=== PATIENT | female | born 1950 | race Caucasian/White ===

== ENCOUNTER 2018-03-10 10:49 | Emergency (ER) | payer OTHER ==
--- NOTE | 2018-03-10 12:18 | ER ---
Nurse's Notes [facility] Name: Rozina Palencia Age: 68 yrs Sex: Female : 1950 Arrival Date: 03/10/2018 Time: 10:52 Bed 26 Private MD: out of town, doctor Diagnosis: Allergic rhinitis, unspecified Presentation: 03/10 11:11 Presenting complaint: Patient states: "I've be dealing with sinus drainage for about 2 aa5 weeks now". Pt denies cough, reports sore throat, reports runny nose. Pt denies fever. Pt states "I saw the doctor on Saturday and Saturday and they gave me a steroid shot and flu pills". Pt reports flu swab was negative at the Doctor's office. Transition of care: patient was not received from another setting of care. Onset of symptoms was February 2018. Risk Assessment: Do you want to hurt yourself or someone else? Patient reports no desire to harm self or others. Initial Sepsis Screen: Does the patient meet any 2 criteria? No. Patient's initial sepsis screen is negative. Does the patient have a suspected source of infection? No. Patient's initial sepsis screen is negative. Care prior to arrival: None. 11:11 Method Of Arrival: Ambulatory aa5 11:11 Acuity: RICARDO 4 aa5 Historical: - Allergies: 11:14 PENICILLINS; aa5 11:14 Toradol; aa5 - Home Meds: 11:14 atenolol 25 mg Oral tab [Active]; aspirin 81 mg Oral chew 1 tab once daily [Active]; aa5 Prozac Oral [Active]; - PMHx: 11:14 Hypertension; Depression; aa5 - PSHx: 11:14 Kidney stones (stent placement and removal).; Hysterectomy; neck; right ankle; aa5 - Immunization history:: Flu vaccine is up to date. - Social history:: Smoking status: Patient uses tobacco products, smokes one-half pack cigarettes per day, Patient/guardian denies using alcohol, street drugs, The patient lives with family. - Ebola Screening: : No symptoms or risks identified at this time. - Family history:: not pertinent. Screenin:39 Abuse screen: Denies threats or abuse. Denies injuries from another. Nutritional aj screening: No deficits noted. Tuberculosis screening: No symptoms or risk factors identified. Fall Risk None identified. Assessment: 12:39 General: Appears in no apparent distress. comfortable, Behavior is calm, cooperative, aj appropriate for age. Pain: Denies pain. Neuro: Level of Consciousness is awake, alert, obeys commands, Oriented to person, place, time, situation, Appropriate for age. Respiratory: Airway is patent Respiratory effort is even, unlabored, Respiratory pattern is regular, symmetrical. EENT: Reports nasal congestion nasal discharge. Derm: Skin is intact, is healthy with good turgor, Skin is pink, warm \\T\\ dry. normal. Vital Signs: 11:14 BP 119 / 75; Pulse 65; Resp 18 S; Temp 97.7(TE); Pulse Ox 98% on R/A; Weight 53.52 kg aa5 (R); Height 5 ft. 0 in. (152.40 cm) (R); Pain 5/10; 11:14 Body Mass Index 23.05 (53.52 kg, 152.40 cm) aa5 11:14 Pt reports body aches aa5 ED Course: 10:52 Patient arrived in ED. sb2 10:52 out of town, doctor is Private Physician. sb2 11:12 Triage completed. aa5 11:12 Arm band placed on. aa5 11:55 Hailee Monroy RN is Primary Nurse. aj 11:55 Jessie Mccallum MD is Attending Physician. ma2 12:39 Patient has correct armband on for positive identification. aj 12:39 No provider procedures requiring assistance completed. Patient did not have IV access aj during this emergency room visit. Administered Medications: 12:21 Drug: SOLU-Medrol 125 mg Route: IM; Site: left gluteus; aj 12:42 Follow up: Response: No adverse reaction aj Outcome: 12:17 Discharge ordered by . ma2 12:39 Discharged to home ambulatory. aj 12:39 Condition: good 12:39 Discharge instructions given to patient, Instructed on discharge instructions, follow up and referral plans. medication usage, Demonstrated understanding of instructions, follow-up care, medications, Prescriptions given X 1. 12:42 Patient left the ED. aj Signatures: Hailee Monroy, RN RN Ruthy Buckner RN RN aa5 Jessie Mccallum MD MD ma2 Toña Lopes sb2 Corrections: (The following items were deleted from the chart) 11:15 11:11 Presenting complaint: Patient states: "I've be dealing with sinus drainage for aa5 about 2 weeks now". Pt denies cough, reports sore throat, reports runny nose. Pt denies fever. aa5
--- NOTE | 2018-03-10 12:19 | EDPHYS ---
Physician Documentation [facility] Name: Rozina Palencia Age: 68 yrs Sex: Female : 1950 Arrival Date: 03/10/2018 Time: 10:52 Bed 26 Private MD: out of town, doctor ED Physician Jessie Mccallum HPI: 03/10 12:15 This 68 yrs old Female presents to ER via Ambulatory with complaints of Sinus ma2 Congestion. 12:15 The patient or guardian reports. Onset: The symptoms/episode began/occurred gradually, ma2 2 day(s) ago. Severity of symptoms: At their worst the symptoms were moderate. Severity of symptoms: At their worst the symptoms were in the emergency department the symptoms are unchanged. Modifying factors: The symptoms are alleviated by nothing. Associated signs and symptoms: Pertinent negatives:. Unable to obtain HPI due to. The patient has not experienced similar symptoms in the past. Historical: - Allergies: 11:14 PENICILLINS; aa5 11:14 Toradol; aa5 - Home Meds: 11:14 atenolol 25 mg Oral tab [Active]; aspirin 81 mg Oral chew 1 tab once daily [Active]; aa5 Prozac Oral [Active]; - PMHx: 11:14 Hypertension; Depression; aa5 - PSHx: 11:14 Kidney stones (stent placement and removal).; Hysterectomy; neck; right ankle; aa5 - Immunization history:: Flu vaccine is up to date. - Social history:: Smoking status: Patient uses tobacco products, smokes one-half pack cigarettes per day, Patient/guardian denies using alcohol, street drugs, The patient lives with family. - Ebola Screening: : No symptoms or risks identified at this time. - Family history:: not pertinent. ROS: 12:15 Constitutional: Negative for fever, chills, and weight loss, Cardiovascular: Negative ma2 for chest pain, palpitations, and edema, Respiratory: Negative for shortness of breath, cough, wheezing, and pleuritic chest pain, Abdomen/GI: Negative for abdominal pain, nausea, diarrhea, and constipation, MS/Extremity: Negative for injury and deformity. 12:15 ENT: Positive for nasal discharge, Negative for Gum pain pulling at ears, Teeth pain difficulty swallowing, difficulty handling secretions, acute changes. Exam: 12:15 Constitutional: This is a well developed, well nourished patient who is awake, alert, ma2 and in no acute distress. Neck: Trachea midline, no thyromegaly or masses palpated, and no cervical lymphadenopathy. Supple, full range of motion without nuchal rigidity, or vertebral point tenderness. No Meningismus. Chest/axilla: Normal chest wall appearance and motion. Nontender with no deformity. No lesions are appreciated. Cardiovascular: Regular rate and rhythm with a normal S1 and S2. No gallops, murmurs, or rubs. Normal PMI, no JVD. No pulse deficits. Respiratory: Lungs have equal breath sounds bilaterally, clear to auscultation and percussion. No rales, rhonchi or wheezes noted. No increased work of breathing, no retractions or nasal flaring. 12:15 MS/ Extremity: Pulses equal, no cyanosis. Neurovascular intact. Full, normal range of motion. Neuro: Awake and alert, GCS 15, oriented to person, place, time, and situation. Cranial nerves II-XII grossly intact. Motor strength 5/5 in all extremities. Sensory grossly intact. Cerebellar exam normal. Normal gait. 12:15 ENT: TM's: are normal, Nose: nasal drainage, that is moderate, and is seen coming from both nares, that is clear. Vital Signs: 11:14 BP 119 / 75; Pulse 65; Resp 18 S; Temp 97.7(TE); Pulse Ox 98% on R/A; Weight 53.52 kg aa5 (R); Height 5 ft. 0 in. (152.40 cm) (R); Pain 5/10; 11:14 Body Mass Index 23.05 (53.52 kg, 152.40 cm) aa5 11:14 Pt reports body aches aa5 MDM: 11:55 Patient medically screened. ma2 12:15 Differential Diagnosis: Bronchitis Upper Respiratory Infection Sinusitis Allergic ma2 Rhinitis. Data reviewed: vital signs, nurses notes. Counseling: I had a detailed discussion with the patient and/or guardian regarding: the historical points, exam findings, and any diagnostic results supporting the discharge/admit diagnosis, the presence of at least one elevated blood pressure reading (>120/80) during this emergency department visit, the need for outpatient follow up. Response to treatment: the patient's symptoms have markedly improved after treatment. Administered Medications: 12:21 Drug: SOLU-Medrol 125 mg Route: IM; Site: left gluteus; aj 12:42 Follow up: Response: No adverse reaction aj Disposition: 03/10/18 12:17 Discharged to Home. Impression: Allergic rhinitis, unspecified. - Condition is Stable. - Discharge Instructions: Allergies, Adult, Nasal Allergies. - Prescriptions for Medrol (Justyn) 4 mg Oral Tablets, Dose Pack - take 1 tablet by ORAL route as directed - follow package instructions; 1 packet. - Medication Reconciliation Form, Thank You Letter, Antibiotic Education, Prescription Opioid Use form. - Follow up: Private Physician; When: Tomorrow; Reason: Continuance of care. Signatures: Hailee Monroy RN RN Ruthy Buckner RN RN aa5 Jessie Mccallum MD MD ma2 Corrections: (The following items were deleted from the chart) 12:42 12:17 03/10/2018 12:17 Discharged to Home. Impression: Allergic rhinitis, unspecified. aj Condition is Stable. Forms are Medication Reconciliation Form, Thank You Letter, Antibiotic Education, Prescription Opioid Use. Follow up: Private Physician; When: Tomorrow; Reason: Continuance of care. ma2
[2018-03-10] MEDS ORDERED: METHYLPREDNISOLONE 125 MG INJ ONE (12:28)
== END 2018-03-10 12:42 | disposition home or self-care (01) ==
LOC: ER 10:49
DX: J30.9 Allergic rhinitis, unspecified (principal); I10 Essential (primary) hypertension; F32.9 Major depressive disorder, single episode, unspecified; F17.210 Nicotine dependence, cigarettes, uncomplicated; Z79.82 Long term (current) use of aspirin; Z79.899 Other long term (current) drug therapy
CPT/HCPCS: 96372; 99283; J2930

== ENCOUNTER 2020-07-14 10:49 | Observation (INO) | payer OTHER ==
--- OUTSIDE RECORDS SUMMARY | 2020-07-14 12:01 | XMS REPORT | Continuity of Care Document ---
:1950 Author Organization [facility] t Address [address] [place] [address] Care Team Providers Name Role Phone Tita Barrett MD Attending Clinician [phone] Tacho Peter MD Attending Clinician TITA BARRETT Attending Clinician Unavailable KARIN LEWIS Admitting Clinician Unavailable Payers Payer Name Policy Type Policy Effective Date Expiration Date Sour ce Number CIGNA [id number] [facility] [employer] 00:00:00 - Medic [facility] [id number] 2019-Pr esentMaps Contracted Problems Condition Condition Condition Status Onset Resolution Last Treating Co mments Source Name Details Category Date Date Treatment Clinician Date Rhabdomyol Rhabdomyol Disease Active [facility] 00 Center Syncope, Syncope, Disease Active [facility] unspecifie unspecifie 12-03 Radha kes - d syncope d syncope 00:00: Medi sybil type type 00 Center Allergies, Adverse Reactions, Alerts Allergy Allergy Status Severity Reaction(s) Onset Inactive Treating Comm ents Source Name Type Date Date Clinician Penicill Propensi Active Anaphylaxis [facility] to 12[facility]02 [facility] - adverse 00:00: Medical reaction 00 Center s Sulfa Drug Active Itching [facility] (Sulfona Allergy 12-02 [facility] - mide 00:00: Medical Antibiot 00 Center ics) Ketorola Drug Active Other (See Patient [facility] Intolera Comments) 12-02 says she [facility] es - nce 00:00: passed Medical 00 out Center Family History Family Member Diagnosis Comments Start Date Stop Date Source Maternal grandmother Stroke [facility] Natural mother Kidney disease [facility] Natural father Diabetes [facility] Social History Social Habit Start Date Stop Date Quantity Comments [facility] Binge Medical [facility] Sex Assigned At [facility] Tobacco use and 2019-12-04 2019-12-04 Never used [facility] - exposure 00:00:00 00:00:[address] [facility] Alcohol intake 2019-12-04 2019-12-[address] [facility] - 00:00:00 00:00:00 non-drinker of Medical Ce nter alcohol (finding) History [facility] 2019-12-03 2019-12-03 1 [facility] Alcohol Frequency 00:00:00 00:00:[address] [facility] Smoking Status Start Date Stop Date Source Current every day smoker 2019-12-04 00:00:00 [facility] Medications Ordered Filled Start Stop Current Ordering Indication Dosage Frequency Signature Comments Components Source Medication Medication Date Date Medication? Clinician (SIG) Name Name atenoloL Yes hypertensio 12.5mg QD Take 12.[address] (TENORMIN) 9-20 n mg by [facility] - 25 MG 18:04: mouth Medical tablet 51 daily. [place] aspirin 81 Yes 81mg QD Take [address] MG EC 9-20 by mouth [facility] - tablet 18:04: daily. Medical 51 Center busPIRone Yes 7.5mg [id number] Take 7.[address] (BUSPAR) 9-20 [id number] mg by Luke s - 7.5 MG 18:04: 3D mouth 3 Medical tablet 51 (three) Center times daily. fluticasone Yes 2{spray QD [address] (VERAMYST) 9-20 } by Nasal [facility] - 27.5 18:04: route Medical mcg/actuati 51 daily. Center on nasal spray valbenazine Yes tardive 80mg QD Take [address] (INGREZZA) 9-20 dyskinesia by mouth [facility] - 80 mg Cap 18:04: daily. Medica l Center gabapentin Yes 600mg QD Take [address] (NEURONTIN) 9-20 mg by [facility] - 600 MG 18:04: mouth Medical tablet 51 daily. [place] lamoTRIgine Yes 100mg QD Take [address] (LAMICTAL) 9-20 mg by [facility] - 100 MG 18:04: mouth Medical tablet 51 nightly. [place] ziprasidone Yes 60mg QD Take [address] (GEODON) 60 9-20 by mouth Luke s - MG capsule 18:04: nightly. Med ical 51 [place] ALPRAZolam 2020- No 1mg Take [address] (XANAX) 1 -05 12-20 by mouth [facility] - MG tablet 11:01: 00:00 every 12 Med ical 00 :00 (twelve) Center hours. ALPRAZolam Yes .5mg Take 0.[address] (XANAX) 1 9-20 tablets [facility] - MG tablet 00:00: (0.5 mg Medic al 00 total) by Center mouth every 12 (twelve) hours. Max Daily Amount: 1 mg Vital Signs Vital Name Observation Time Observation Value Comments Source Systolic blood 2019-12-06 15:30:00 135 mm[Hg] [facility] Diastolic blood 2019-12-06 15:30:00 96 mm[Hg] [facility] Heart rate 2019-12-06 15:30:00 72 /min [facility] Body temperature 2019-12-06 15:30:00 36.06 Mikayla [facility] Respiratory rate 2019-12-06 15:30:00 18 /min [facility] Oxygen saturation in 2019-12-06 15:30:00 96 /min [facility] Arterial blood by Medical Ce nter Pulse oximetry Body height 2019-12-03 23:43:00 152.4 cm [facility] Body weight 2019-12-03 23:43:00 57.924 kg [facility] BMI 2019-12-03 23:43:00 24.94 kg/m2 [facility] Procedures Procedure Date / Time Performed Performing Clinician [facility] e REPORT OF PROCEDURE - 2019-12-09 08:00:37 Provider, Default [facility] - ENDOSCOPY SCAN [facility] RHYTHM STRIP - SCAN 2019-12-09 08:00:25 Provider, Default [facility] CBC W/PLT COUNT & AUTO 2019-12-06 05:41:[address] [facility] - DIFFERENTIAL [facility] BASIC METABOLIC PANEL 2019-12-06 05:40:[address] [facility] - (7) [facility] CBC W/PLT COUNT & AUTO 2019-12-05 05:31:[address] [facility] - DIFFERENTIAL [facility] BASIC METABOLIC PANEL 2019-12-05 05:31:[address] [facility] - (7) [facility] CREATINE KINASE (CK) 2019-12-05 05:31:00 Norman Peter [facility] 2D ECHO W/ DOPPLER 2019-12-04 09:48:13 Alphonso Ricci [facility] (CW/PW/COLOR) [facility] CREATINE KINASE (CK) 2019-12-04 04:30:00 Alphonso Ricci [facility] URINALYSIS W/ 2019-12-04 04:29:[address] [facility] - MICROSCOPIC [facility] SARS-COV2/RT-PCR ([facility] & 2019-12-04 02:33:[address] [facility] - REF LABS) [facility] ECG 12-LEAD 2019-12-04 01:47:[address] [facility] CBC W/PLT COUNT & AUTO 2019-12-04 01:39:[address] [facility] - DIFFERENTIAL [facility] BASIC METABOLIC PANEL 2019-12-04 01:39:[address] [facility] - (7) [facility] HEPATIC FUNCTION PANEL 2019-12-04 01:39:[address] [facility] MAGNESIUM 2019-12-04 01:39:[address] [facility] PHOSPHORUS 2019-12-04 01:39:[address] [facility] [facility] Plan of Care Planned Activity Planned Date Details Comments Source Future Scheduled 2019-11-17 INFLUENZA VACCINE (#1) [facility] - Test 00:00:00 [code = INFLUENZA Medical Ce nter VACCINE (#1)] Future Scheduled 2019-03-18 Medicare IPPE (WELCOME [facility] - Test 00:00:00 TO MEDICARE) [code = [facility] Center Medicare IPPE (WELCOME TO MEDICARE)] Future Scheduled 2015 PNEUMOCOCCAL 65+ [facility] - Test 00:00:00 (1 of 1 - [facility] Center [id number] PCV13) [code = PNEUMOCOCCAL 65+ YRS (1 of 1 - [id number] PCV13)] Future Scheduled [address] [facility] St [facility] es - Test 00:00:00 malignant neoplasm of [facility] breast (procedure) [code = 969179984] Future Scheduled [address] [facility] - Test 00:00:00 malignant neoplasm of [facility] colon (procedure) [code = 642575369] Results Test Description Test Time Test Comments Results Result Comments Source Basic Metabolic Panel 2019-12-06 06:50:00 Test Item Value Reference Range Interpretation Comme nts Sodium (test code = 141 meq/L 002-304 8672-2) Potassium (test code = 3.7 meq/L 3.5-5.1 2823-3) Chloride (test code = 105 meq/L 98-107 2075-0) CO2 (test code = 8-9) 27 meq/L 22-29 BUN (test code = 3094-0) 4 mg/dL 7-21 L Creatinine (test code = 0.65 mg/dL 0.57-1.25 2160-0) Glucose (test code = 97 mg/dL 70-105 2345-7) Calcium (test code = 8.5 mg/dL 8.4-10.2 02814-3) EGFR (test code = 94859-4) 90 mL/min/1.73 sq m ESTIMATED GFR IS NOT ACCURATE CREATININE CINTHYA PIETRO IN PREDICTING GLOMERULAR FILT RATION RATE. ESTIMATED GFR IS NOT APPLICAB LE FOR DIALYSIS MARY TS. CEE (test code = CEE) Acid Tender ID - EDASI Lab Interpretation (test Abnormal code = 55347-6) [facility] [id number] 06:50:00 Test Item Value Reference Range Interpretation Comments SODIUM (BEAKER) 141 meq/L 136-145 (test code = 381) POTASSIUM (BEAKER) 3.7 meq/L 3.5-5.1 (test code = 379) CHLORIDE (BEAKER) 105 meq/L 98-107 (test code = 382) CO2 (BEAKER) (test 27 meq/L 22-29 code = 355) BLOOD UREA NITROGEN 4 mg/dL 7-21 L (BEAKER) (test code = 354) CREATININE (BEAKER) 0.65 mg/dL 0.57-1.25 (test code = 358) GLUCOSE RANDOM 97 mg/dL 70-105 (BEAKER) (test code = 652) CALCIUM (BEAKER) 8.5 mg/dL 8.4-10.2 (test code = 697) EGFR (BEAKER) (test 90 mL/min/1.73 ESTIMA RENAE GFR IS code = 1092) sq m NOT ACCURATE CREATININE CLEARANCE IN PREDICTING GLOMERULAR FILTRATION RATE . ESTIMATED GFR I S NOT APPLICABLE FOR DIALYSIS PATIEN TS. Acid Tender ID - EDASICBC with platelet count + automated [id number] 06:21:00 Test Item Value Reference Range Interpretation Comments WBC (test code = 6690-2) 7.5 See_Comment [A utomated message] The system [employer] generated this result transmitted ref erence range: 3.5 - 10 .5 K/L. The refe rence range was not u sed to interpret this result as normal/abnor mal. RBC (test code = 789-8) 4.12 See_Comment [Au tomated message] The system [employer] generated this result transmitted ref erence range: 3.93 - 5 .22 M/L. The refe rence range was not u sed to interpret this result as normal/abnor mal. MCHC (test code = 786-4) 31.1 See_Comment L [A utomated message] The system [employer] generated this result transmitted ref erence range: 32.2 - 3 5.5 GM/DL. The refe rence range was not u sed to interpret this result as normal/abnor mal. Hematocrit (test code = 36.7 % 34.1-44.9 4544-3) MCV (test code = 787-2) 89.1 fL 79.4-94.8 MCH (test code = 785-6) 27.7 pg 25.6-32.2 RDW (test code = 788-0) 15.9 % 11.7-14.4 H Platelets (test code = 263 See_Comment [Aut omated message] 777-3) The system [employer] generated this result transmitted ref erence range: 150 - 45 0 K/CU MM. The referen ce range was not u sed to interpret this result as normal/abnor mal. MPV (test code = 9.5 fL 9.4-12.3 31649-2) nRBC (test code = 413) 0 See_Comment [Aut omated message] The system [employer] generated this result transmitted ref erence range: 0 - 0 /1 00 WBC. The refere nce range was not u sed to interpret this result as normal/abnor mal. % Neutros (test code = 65 % 429) % Lymphs (test code = 22 % 430) % Monos (test code = 10 % 431) % Eos (test code = 432) 3 % % Baso (test code = 437) 0 % # Neutros (test code = 4.86 See_Comment [Aut omated message] 670) The system [employer] generated this result transmitted ref erence range: 1.56 - 6 .13 K/L. The refe rence range was not u sed to interpret this result as normal/abnor mal. # Lymphs (test code = 1.62 See_Comment [Auto mated message] 414) The system [employer] generated this result transmitted ref erence range: 1.18 - 3 .74 K/L. The refe rence range was not u sed to interpret this result as normal/abnor mal. # Monos (test code = 0.76 See_Comment H [Autom ated message] 415) The system [employer] generated this result transmitted ref erence range: 0.24 - 0 .36 K/L. The refe rence range was not u sed to interpret this result as normal/abnor mal. # Eos (test code = 416) 0.21 See_Comment [Au tomated message] The system [employer] generated this result transmitted ref erence range: 0.04 - 0 .36 K/L. The refe rence range was not u sed to interpret this result as normal/abnor mal. # Baso (test code = 417) 0.03 See_Comment [A utomated message] The system [employer] generated this result transmitted ref erence range: 0.01 - 0 .08 K/L. The refe rence range was not u sed to interpret this result as normal/abnor mal. Immature 0 % 0-1 Granulocytes-Relative (test code = 2801) Lab Interpretation (test Abnormal code = 87489-9) [facility] W/PLT COUNT & AUTO [id number] 06:21:00 Test Item Value Reference Range Interpretation Comments WHITE BLOOD CELL COUNT (BEAKER) 7.5 K/ L 3.5-10.5 (test code = 775) RED BLOOD CELL COUNT (BEAKER) 4.12 M/ L 3.93-5.22 (test code = 761) HEMOGLOBIN (BEAKER) (test code = 11.4 GM/DL 11.2-15.7 410) HEMATOCRIT (BEAKER) (test code = 36.7 % 34.1-44.9 411) MEAN CORPUSCULAR VOLUME (BEAKER) 89.1 fL 79.4-94.8 (test code = 753) MEAN CORPUSCULAR HEMOGLOBIN 27.7 pg 25.6-32.2 (BEAKER) (test code = 751) MEAN CORPUSCULAR HEMOGLOBIN CONC 31.1 GM/DL 32.2-35.5 L (BEAKER) (test code = 752) RED CELL DISTRIBUTION WIDTH 15.9 % 11.7-14.4 H (BEAKER) (test code = 412) PLATELET COUNT (BEAKER) (test 263 K/CU MM 150-450 code = 756) MEAN PLATELET VOLUME (BEAKER) 9.5 fL 9.4-12.3 (test code = 754) NUCLEATED RED BLOOD CELLS 0 /100 WBC 0-0 (BEAKER) (test code = 413) NEUTROPHILS RELATIVE PERCENT 65 % (BEAKER) (test code = 429) LYMPHOCYTES RELATIVE PERCENT 22 % (BEAKER) (test code = 430) MONOCYTES RELATIVE PERCENT 10 % (BEAKER) (test code = 431) EOSINOPHILS RELATIVE PERCENT 3 % (BEAKER) (test code = 432) BASOPHILS RELATIVE PERCENT 0 % (BEAKER) (test code = 437) NEUTROPHILS ABSOLUTE COUNT 4.86 K/ L 1.56-6.13 (BEAKER) (test code = 670) LYMPHOCYTES ABSOLUTE COUNT 1.62 K/ L 1.18-3.74 (BEAKER) (test code = 414) MONOCYTES ABSOLUTE COUNT (BEAKER) 0.76 K/ L 0.24-0.36 H (test code = 415) EOSINOPHILS ABSOLUTE COUNT 0.21 K/ L 0.04-0.36 (BEAKER) (test code = 416) BASOPHILS ABSOLUTE COUNT (BEAKER) 0.03 K/ L 0.01-0.08 (test code = 417) IMMATURE GRANULOCYTES-RELATIVE 0 % 0-1 PERCENT (BEAKER) (test code = 2801) Creatine Kinase (CK)2019-12-05 13:49:00 Test Item Value Reference Range Interpretation Comments Total CK (test code = 1165 U/L 29-200 H 2157-6) CEE (test code = CEE) Acid Tender ID Heather GUPTA L Lab Interpretation (test Abnormal code = 05813-4) [facility]2019-12-05 13:49:00 Test Item Value Reference Range Interpretation Comments CREATINE KINASE TOTAL (BEAKER) (test 1165 U/L 29-200 H code = 380) Acid Tender NIK GUPTA LBASIC METABOLIC [id number] 07:49:00 Test Item Value Reference Range Interpretation Comments SODIUM (BEAKER) 139 meq/L 136-145 (test code = 381) POTASSIUM (BEAKER) 3.2 meq/L 3.5-5.1 L (test code = 379) CHLORIDE (BEAKER) 107 meq/L 98-107 (test code = 382) CO2 (BEAKER) (test 29 meq/L 22-29 code = 355) BLOOD UREA NITROGEN 4 mg/dL 7-21 L (BEAKER) (test code = 354) CREATININE (BEAKER) 0.65 mg/dL 0.57-1.25 (test code = 358) GLUCOSE RANDOM 96 mg/dL 70-105 (BEAKER) (test code = 652) CALCIUM (BEAKER) 8.7 mg/dL 8.4-10.2 (test code = 697) EGFR (BEAKER) (test 90 mL/min/1.73 ESTIMA RENAE GFR IS code = 1092) sq m NOT ACCURATE CREATININE CLEARANCE IN PREDICTING GLOMERULAR FILTRATION RATE . ESTIMATED GFR I S NOT APPLICABLE FOR DIALYSIS PATIEN TS. Acid Tender ID - PASCUAL [facility] W/PLT COUNT & AUTO [id number] 07:13:00 Test Item Value Reference Range Interpretation Comments WHITE BLOOD CELL COUNT (BEAKER) 6.0 K/ L 3.5-10.5 (test code = 775) RED BLOOD CELL COUNT (BEAKER) 3.97 M/ L 3.93-5.22 (test code = 761) HEMOGLOBIN (BEAKER) (test code = 11.3 GM/DL 11.2-15.7 410) HEMATOCRIT (BEAKER) (test code = 35.6 % 34.1-44.9 411) MEAN CORPUSCULAR VOLUME (BEAKER) 89.7 fL 79.4-94.8 (test code = 753) MEAN CORPUSCULAR HEMOGLOBIN 28.5 pg 25.6-32.2 (BEAKER) (test code = 751) MEAN CORPUSCULAR HEMOGLOBIN CONC 31.7 GM/DL 32.2-35.5 L (BEAKER) (test code = 752) RED CELL DISTRIBUTION WIDTH 15.9 % 11.7-14.4 H (BEAKER) (test code = 412) PLATELET COUNT (BEAKER) (test 260 K/CU MM 150-450 code = 756) MEAN PLATELET VOLUME (BEAKER) 9.8 fL 9.4-12.3 (test code = 754) NUCLEATED RED BLOOD CELLS 0 /100 WBC 0-0 (BEAKER) (test code = 413) NEUTROPHILS RELATIVE PERCENT 63 % (BEAKER) (test code = 429) LYMPHOCYTES RELATIVE PERCENT 25 % (BEAKER) (test code = 430) MONOCYTES RELATIVE PERCENT 8 % (BEAKER) (test code = 431) EOSINOPHILS RELATIVE PERCENT 3 % (BEAKER) (test code = 432) BASOPHILS RELATIVE PERCENT 1 % (BEAKER) (test code = 437) NEUTROPHILS ABSOLUTE COUNT 3.72 K/ L 1.56-6.13 (BEAKER) (test code = 670) LYMPHOCYTES ABSOLUTE COUNT 1.49 K/ L 1.18-3.74 (BEAKER) (test code = 414) MONOCYTES ABSOLUTE COUNT (BEAKER) 0.50 K/ L 0.24-0.36 H (test code = 415) EOSINOPHILS ABSOLUTE COUNT 0.18 K/ L 0.04-0.36 (BEAKER) (test code = 416) BASOPHILS ABSOLUTE COUNT (BEAKER) 0.04 K/ L 0.01-0.08 (test code = 417) IMMATURE GRANULOCYTES-RELATIVE 0 % 0-1 PERCENT (BEAKER) (test code = 2801) 2D Echo W/Doppler(CW/PW/Color)2019-12-04 12:45:25Ejection FractionSLEH ECHO HEARTLAB MKCKESSON CPACSInterface, External Ris In - 12/04/2019 12:45 PM C DTTransthoracic Echocardiography Report (TTE) Demographics Patient Name KISWAHILI, Date ofStudy 12/04/2019 CHARLA Gender Female Visit Number [id number] Race Room Number 1154 Number Date of 1950 Referring Physician Rica Barrett Age 69 year(s) 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 Normal LV size and function. LVEF is > 60%. False LV tendon noted 2. Diastology: Grade 1 diastolic dysfunction 3. Normal RV size and function 4. No significant valvular heart disease 5. Trace TR. Unable to estimate PASP 6. No pericardial effusion Previous Study No prior studies available for comparison. Signature Findings Left Ventricle Normal left ventricular chamber size. Normal wall thickness. Normal overall left ventricular systolic function. No apparent segmental wall motion abnormalities. Estimated LVEF by qualitative assessment is increased (>60%) . Grade 1 diastolic dysfunction (impaired relaxation and low-normal LA pressure). Left Atrium LA size is normal . Right Ventricle Normal right ventricle structure and function. Right Atrium Normal right atrium. Atrial Septum Normal Aortic Valve Normal AoV structure. Mitral Valve Normal MV structure. Trace mitral regurgitation. Tricuspid Valve A trace of tricuspid regurgitation. Pulmonic Valve Normal PV structure and function by limited views and Doppler. Aorta Aortic root size (SInus of Valsalva diameter) is normal . Pericardium No evidence of pericardial effusion. IVC/SVC/PA/PV/Pleural The estimated RA pressure by IVC dynamics 5-10mmHg . Chambers/Structures Left Atrium LA Dimension: 3.08 cm LA Area: 11.75 cm^2 LA Volume: 27.57 ml LA Vol. Index: 18 ml/m^2 Left Ventricle LVIDd: 3.79 cm LV Septum Diastolic: 1.12 cm LV PW Diastolic: 1.08 cm LVEDV Givens's:57.74 ml LVESV Givens's:21.87 ml LVEF Givens's: 62.1 % LVEDVI:37 ml/m^2 LVESVI: 14 ml/m^2 LVOT Diameter: 1.95 cm Aorta Ao Root S of Radha.: 2.91 cm Doppler/Quantitative Measurements Mitral Valve MV Peak E-Wave: 0.71 m/s MV Peak A-Wave: 1.09 m/s E/A Ratio: 0.65 Peak Gradient: 2.03 mmHg Deceleration Time: 261.2 msec MV Janusz. Peak: Tissue Doppler E' Lateral Velocity: 0.07 m/s E/E': 10.11 Aortic Valve Peak Velocity: 1.79 m/s Mean Velocity: 1.19 m/s Peak Gradient: 12.75 mmHg Mean Gradient: 6.27 mmHg AV Area (continuity): 2.35 cm^2 AV VTI: 32.91 cm AV DVI: 0.79 LVOT Peak Velocity: 1.19 m/s Peak Gradient: 5.71 mmHg Mean Velocity: 0.77 m/s Mean Gradient: 2.8 mmHg LVOT Diameter: 1.95 cm LVOT VTI: 25.89 cm LVOT Area: 2.99 cm^2 LVOT SV:77.28 ml LVOT CO: 5.64 l/min LVOT CI: 3.66 l/min/m^2 Tricuspid Valve TR Velocity: 2.41 m/s TR Gradient: 23.18 mmHgOrchard HospitalARS-CoV[facility]/RT-PCR (Asymptomatic ONLY)2019-12-04 10:00:00 Test Item Value Reference Range Interpretation Comments SARS-COV2/RT-PCR Negative Not Detected, (test code = Negative, See 62395-7) external report for linked test SARS-COV-2 [facility] PERFORMING LAB (test code = 07683-5) CEE (test code = Negative result for this CEE) test determines that SARS-CoV-2 RNA was not present in the specimen above the Limit of Detection (LOD). However, Negative results do not preclude SARS-CoV-2 infection and should not be used as the sole basis for treatment or patient management decisions. Negative results must be combined with clinical observations, patient history, and epidemiological information. A false negative result may occur if a specimen is improperly collected, transported or handled. A false negative result should be considered if patient's recent exposures or clinical presentation indicate that COVID-19 (SARS-CoV-2) is likely and diagnostic tests for other causes of illness are negative. Re-testing should be considered in cases of suspected false negatives. The limit of detection for this assay is 800 copies/mL. This SARS CoV-2 test is a real-time RT-PCR test intended for the qualitative detection of nucleic acid from SARS-CoV-2 in a nasopharyngeal swab specimen collected from individuals suspected of COVID-19 by their healthcare provider. This test has not been Food and Drug Administration (FDA) cleared or approved. This is a modified version of an approved Emergency Use Authorization (EUA) and is in the process of review by the FDA. Once authorized by the FDA, the issued EUA will be effective until the declaration that circumstances exist justifying the authorization of the emergency use of in vitro diagnostic tests for detection and/or diagnosis of COVID-19 is terminated under Section 564(b)(2) of the Act or the EUA is revoked under Section 564(g) of the Act. Fact Sheet for Healthcare Providers:https://www.[employer]/sites/default/f kenia/product/documents/F act_Sheet_HC_Providers_L ylp_DLRW-MgD-7.pdf Fact Sheet for Healthcare Patients:https://www.[employer]/sites/default/fi les/product/documents/Fa ct_Sheet_Patients_Lyra_S ARS-CoV-2.pdf Performing Laboratory:[facility]-COV2/RT-PCR ([facility])2019-12-04 10:00:00 Test Item Value Reference Range Interpretation Comments SARS-COV2/RT-PCR (test Negative Not Detected, Negative, code = 7407008) See external report for linked test SARS-COV-2 PERFORMING LAB [facility] (test code = 1104405) Negative result for this test determines that SARS-CoV-2 RNA was not present in the specimen above the Limit of Detection (LOD). However, Negative results do not preclude SARS-CoV-2 infection and should not be used as the sole basis for treatment or patient management decisions. Negative results mustbe combined with clinical observations, patient history, and epidemiological information. A false negative result may occur if a specimen is improperly collected, transported or handled. A false negative result should be considered if patient's recent exposures or clinical presentation indicate that COVID-19 (SARS-CoV-2) is likely and diagnostic tests for other causes of illness are negative. Re-testing should be considered in cases of suspected false negatives.The limit of detection for this assay is 800 copies/mL.This SARS CoV-2 test is a real-time RT-PCR test intended for the qualitative detection of nucleic acid from SARS-CoV-2 in a nasopharyngeal swab specimen collected from individuals susp ected of COVID-19 by their healthcare provider.This test has not been Food and Drug Administration (FDA) cleared or approved. This is a modified version of an approved Emergency Use Authorization (EUA) and is in the process of review by the FDA. Once authorized by the FDA, the issued EUA will be effective until the declaration that circumstances exist justifying the authorization of the emergency use of in vitro diagnostic tests for detection and/or diagnosis of COVID-19 is terminated under Section 564(b)(2) of the Act or the EUA is revoked under Section 564(g) of the Act.Fact Sheet for Healthcare Providers:https://www.[employer]/sites/default/files/product/documents/Fact_Shee u_OG_Thouxzjsp_Zcze_XVJC-XnX-9.pdfFact Sheet for Healthcare Patients:https://www.[employer]/sites/default/files/product/ documents/Vdey_Mwvts_Mmepcemv_Dkhs_YVAX-WyO-0.pdfPerforming Laboratory:[facility], [place] [address]LJD 12 [id number] 07:31:31Interface, External Ris In - 12/04/2019 7:31 AM CDTVentricular Rate 66 BPMAtrial Rate 66 BPMP-R Interval 184 msQRS Duration 86 msQ-T Interval 454 msQTC Calculation(Bazett) 475 msP Central 55 degreesR Central 54 degreesT Central 38 degreesNormal sinus rhythmEarly transition, increased R/S ratio in V1, consider posterior infarctAbnormal ECGNo previous ECGs availableConfirmed by Dinh Cortes ([id number]) on 12/04/20197:31:27 [facility] CenterUrinal[facility] w/[id number] 06:03:00 Test Item Value Reference Range Interpretation Comments Color, UA (test code Light Yellow = 5778-6) Clarity, UA (test Clear code = 5767-9) Specific [place], UA 1.008 1.001-1.035 (test code = 5811-5) pH, UA (test code = 6.5 5.0-8.0 5803-2) Protein, UA (test Negative Negative code = 13935-5) Glucose, UA (test Negative Negative code = 365) Ketones, UA (test Negative Negative code = 2514-8) Bilirubin, UA (test Negative Negative code = 95072-0) Blood, UA (test code Negative Negative = 41926-8) Nitrite, UA (test Positive Negative A code = 5802-4) Leukocytes, UA (test Moderate Negative A code = 5799-2) Urobilinogen, UA 0.2 mg/dL 0.2-1 (test code = 26483-7) RBC, UA (test code = <1 See_Comment [Autom ated 21869-6) message] The system which generated this result transmit renae reference range : /HPF. The reference range was not used to interpret this result as normal/abnormal . WBC, UA (test code = 2 See_Comment [Autom ated 5821-4) message] The system which generated this result transmit renae reference range : /HPF. The reference range was not used to interpret this result as normal/abnormal . Bacteria, UA (test Rare code = 99553-7) Squam Epithel, UA <1 See_Comment [Automate d (test code = 62448-0) messag e] The system which generated this result transmit renae reference range : /HPF. The reference range was not used to interpret this result as normal/abnormal . Specimen Source (test code = 2795) CEE (test code = CEE) Acid Tender ID - [auto]Acid Tender ID - tech Lab Interpretation Abnormal (test code = 85025-2) [facility] [id number] 06:03:00 Test Item Value Reference Range Interpretation Comments COLOR (BEAKER) (test code = 470) Light Yellow CLARITY (BEAKER) (test code = Clear 469) SPECIFIC GRAVITY UA (BEAKER) 1.008 1.001-1.035 (test code = 468) PH UA (BEAKER) (test code = 467) 6.5 5.0-8.0 PROTEIN UA (BEAKER) (test code = Negative Negative 464) GLUCOSE UA (BEAKER) (test code = Negative Negative 365) KETONES UA (BEAKER) (test code = Negative Negative 371) BILIRUBIN UA (BEAKER) (test code Negative Negative = 462) BLOOD UA (BEAKER) (test code = Negative Negative 461) NITRITE UA (BEAKER) (test code = Positive Negative A 465) LEUKOCYTE ESTERASE UA (BEAKER) Moderate Negative A (test code = 466) UROBILINOGEN UA (BEAKER) (test 0.2 mg/dL 0.2-1.0 code = 463) RBC UA (BEAKER) (test code = < /HPF 519) WBC UA (BEAKER) (test code = 2 /HPF 520) BACTERIA (BEAKER) (test code = Rare 517) SQUAMOUS EPITHELIAL (BEAKER) < /HPF (test code = 516) SOURCE(BEAKER) (test code = 2795) Acid Tender ID - [auto]Acid Tender ID - techCREATINE KINASE (CK)2019-12-04 05:38:00 Test Item Value Reference Range Interpretation Comments CREATINE KINASE TOTAL (BEAKER) (test 2301 U/L 29-200 H code = 380) Acid Tender ID - CANDY epatic function [id number] 02:43:00 Test Item Value Reference Range Interpretation Comments Protein, Total (test 5.9 See_Comment L [Autom ated code = 2885-2) message] The system which generated this result transmit renae reference range : 6.0 - 8.3 gm/dL . The reference range was not u sed to interpret th is result as normal/abnormal . Albumin (test code = 3.3 g/dL 3.5-5 L 68863-6) Total Bilirubin (test 0.5 mg/dL 0.2-1.2 code = 1975-2) Bilirubin, Direct 0.2 mg/dL 0.1-0.5 (test code = 1968-7) Alkaline Phosphatase 78 U/L 40-150 (test code = 6768-6) AST (test code = 45 U/L 5-34 H 1920-8) ALT (test code = 18 U/L 6-55 1742-6) CEE (test code = CEE) Acid Tender ID - CANDY L Lab Interpretation Abnormal (test code = 64821-4) [facility] CenterMagnesium2020-09-18 02:43:00 Test Item Value Reference Range Interpretation Comments Magnesium (test code = 1.9 mg/dL 1.6-2.6 90589-9) CEE (test code = CEE) Acid Tender ID - CANDY L Lab Interpretation (test Normal code = 74585-7) [facility] Center[facility]osphorus2020-09-18 02:43:00 Test Item Value Reference Range Interpretation Comments Phosphorus (test code = 3.2 mg/dL 2.3-4.7 2777-1) CEE (test code = CEE) Acid Tender ID - CANDY L Lab Interpretation (test Normal code = 42071-3) [facility]PHOSPHORUS2020-09-18 02:43:00 Test Item Value Reference Range Interpretation Comments PHOSPHORUS (BEAKER) (test code = 3.2 mg/dL 2.3-4.7 604) Acid Tender ID - CANDY [id number] 02:43:00 Test Item Value Reference Range Interpretation Comments MAGNESIUM (BEAKER) (test code = 1.9 mg/dL 1.6-2.6 627) Acid Tender ID - CANDY LBASIC METABOLIC [id number] 02:43:00 Test Item Value Reference Range Interpretation Comments SODIUM (BEAKER) 139 meq/L 136-145 (test code = 381) POTASSIUM (BEAKER) 3.5 meq/L 3.5-5.1 (test code = 379) CHLORIDE (BEAKER) 107 meq/L 98-107 (test code = 382) CO2 (BEAKER) (test 25 meq/L 22-29 code = 355) BLOOD UREA NITROGEN 5 mg/dL 7-21 L (BEAKER) (test code = 354) CREATININE (BEAKER) 0.75 mg/dL 0.57-1.25 (test code = 358) GLUCOSE RANDOM 84 mg/dL 70-105 (BEAKER) (test code = 652) CALCIUM (BEAKER) 8.1 mg/dL 8.4-10.2 L (test code = 697) EGFR (BEAKER) (test 77 mL/min/1.73 ESTIMA RENAE GFR IS code = 1092) sq m NOT ACCURATE CREATININE CLEARANCE IN PREDICTING GLOMERULAR FILTRATION RATE . ESTIMATED GFR I S NOT APPLICABLE FOR DIALYSIS PATIEN TS. Acid Tender ID - CANDY LHEPATIC FUNCTION [id number] 02:43:00 Test Item Value Reference Range Interpretation Comments TOTAL PROTEIN (BEAKER) (test code = 5.9 gm/dL 6.0-8.3 L 770) ALBUMIN (BEAKER) (test code = 1145) 3.3 g/dL 3.5-5.0 L BILIRUBIN TOTAL (BEAKER) (test code 0.5 mg/dL 0.2-1.2 = 377) BILIRUBIN DIRECT (BEAKER) (test 0.2 mg/dL 0.1-0.5 code = 706) ALKALINE PHOSPHATASE (BEAKER) (test 78 U/L 40-150 code = 346) AST (SGOT) (BEAKER) (test code = 45 U/L 5-34 H 353) ALT (SGPT) (BEAKER) (test code = 18 U/L 6-55 347) Acid Tender ID - PILOKI LCBC W/PLT COUNT & AUTO [id number] 02:16:00 Test Item Value Reference Range Interpretation Comments WHITE BLOOD CELL COUNT (BEAKER) 7.2 K/ L 3.5-10.5 (test code = 775) RED BLOOD CELL COUNT (BEAKER) 4.07 M/ L 3.93-5.22 (test code = 761) HEMOGLOBIN (BEAKER) (test code = 11.2 GM/DL 11.2-15.7 410) HEMATOCRIT (BEAKER) (test code = 35.8 % 34.1-44.9 411) MEAN CORPUSCULAR VOLUME (BEAKER) 88.0 fL 79.4-94.8 (test code = 753) MEAN CORPUSCULAR HEMOGLOBIN 27.5 pg 25.6-32.2 (BEAKER) (test code = 751) MEAN CORPUSCULAR HEMOGLOBIN CONC 31.3 GM/DL 32.2-35.5 L (BEAKER) (test code = 752) RED CELL DISTRIBUTION WIDTH 15.6 % 11.7-14.4 H (BEAKER) (test code = 412) PLATELET COUNT (BEAKER) (test 281 K/CU MM 150-450 code = 756) MEAN PLATELET VOLUME (BEAKER) 9.6 fL 9.4-12.3 (test code = 754) NUCLEATED RED BLOOD CELLS 0 /100 WBC 0-0 (BEAKER) (test code = 413) NEUTROPHILS RELATIVE PERCENT 57 % (BEAKER) (test code = 429) LYMPHOCYTES RELATIVE PERCENT 31 % (BEAKER) (test code = 430) MONOCYTES RELATIVE PERCENT 8 % (BEAKER) (test code = 431) EOSINOPHILS RELATIVE PERCENT 3 % (BEAKER) (test code = 432) BASOPHILS RELATIVE PERCENT 1 % (BEAKER) (test code = 437) NEUTROPHILS ABSOLUTE COUNT 4.09 K/ L 1.56-6.13 (BEAKER) (test code = 670) LYMPHOCYTES ABSOLUTE COUNT 2.26 K/ L 1.18-3.74 (BEAKER) (test code = 414) MONOCYTES ABSOLUTE COUNT (BEAKER) 0.57 K/ L 0.24-0.36 H (test code = 415) EOSINOPHILS ABSOLUTE COUNT 0.21 K/ L 0.04-0.36 (BEAKER) (test code = 416) BASOPHILS ABSOLUTE COUNT (BEAKER) 0.04 K/ L 0.01-0.08 (test code = 417) IMMATURE GRANULOCYTES-RELATIVE 0 % 0-1 PERCENT (BEAKER) (test code = 2804)
[2020-07-14] MEDS ORDERED: ACETAMINOPHEN 500 MG TAB PO PRN (12:42)
[2020-07-14] MEDS ORDERED: MAGNESIUM HYDROXIDE 8% 30 ML PO PRN (12:42)
[2020-07-14] MEDS ORDERED: ALPRAZOLAM 0.5 MG TABLET PO PRN (12:42)
[2020-07-14 12:57] VITALS: BMI 20.5
--- NOTE | 2020-07-14 13:06 | P.HP ---
Certification for Inpatient Patient admitted to: Observation With expected LOS: <2 Midnights Practitioner: I am a practitioner with admitting privileges, knowledge of patient current condition, hospital course, and medical plan of care. Services: Services provided to patient in accordance with Admission requirements found in Title 42 Section 412.3 of the Code of Federal Regulations Patient History Date of Service: 07/14/20 Reason for admission: chest pain History of Present Illness: 70 y o female pt with hx of tobacco use, chronic pain issues, hx of Bipolar disorder who was brought to the hospital for work up of suspected ACS. She was initially worked up at [facility] and was found to have a slight troponin bump. She was transferred to [place] for further evaluation. She attested to some weakness and tingling in the left hand. She has ocassions of dizziness and weakness but she denied overt chest pain. No sob, maier, pnd or orthopnea symptoms. She is a heavy smoker. she did report having a LHC about 20yrs ago which was said to be clean. Review of Systems General: Weakness, Malaise Eyes: Unremarkable ENT: Unremarkable Respiratory: Unremarkable Cardiovascular: Unremarkable Gastrointestinal: Unremarkable Genitourinary: Unremarkable Musculoskeletal: Unremarkable Integumentary: Unremarkable Neurological: Unremarkable Physical Examination - Physical Exam General: Alert, Oriented x3, Cooperative HEENT: Atraumatic, Normocephalic Neck: Supple Respiratory: Clear to auscultation bilaterally Cardiovascular: No edema, Regular rate/rhythm, Normal S1 S2 Gastrointestinal: Soft and benign Musculoskeletal: No swelling Neurological: Normal speech, Cranial nerves 3-12 intact, Normal reflexes 2+ Assessment and Plan - Plan 1.ACS r/o: we will trend troponin and CKMB to r/o acs. she does have atypical symptoms and with her age and female sex. we will monitor her labs and vitals closely. we will have her on telemetry. we will obtain lipid panel. 2.tobacco use: we will start nicotine patch. 3.Bipolar disorder: we will continue outpt meds. 4.Chronic pain: we will continue norco for pain control. Discharge Plan: Home Plan to discharge in: 24 Hours - Advance Directives Does patient have a Living Will: No Does patient have a Durable POA for Healthcare: No - Code Status/Comfort Care Code Status Assessed: Yes Code Status: Full Code
[2020-07-14 13:43] LABS: Absolute Lymphocytes (CBC) 1.6 K/uL (0.7-4.9); Basophils % 0.5 % (0-1.3); Hematocrit 36.4 % (36.0-45.0); Lymphocytes % 17.7 % (15.3-44.8); MPV 8.2 fL (7.6-11.3); RBC Red Blood Cell Count 4.47 M/uL (3.86-4.86)
[2020-07-14 13:54] LABS: Albumin 3.2 g/dL (3.4-5.0); Bilirubin Total 0.2 mg/dL (0.2-1.0); Magnesium 2.1 mg/dL (1.8-2.4); Phosphorus 3.3 mg/dL (2.5-4.9); Potassium 3.9 mmol/L (3.5-5.1); Protein, Total 7.1 g/dL (6.4-8.2)
[2020-07-14 13:55] LABS: CKMB Creatine Kinase MB < 1.0 ng/mL (0.3-3.6); Creatine Phosphokinase 42 U/L (26-192); Troponin I 0.08 ng/mL (0.0-0.045)
[2020-07-14] MEDS: NICOTINE 21 MG/PAT TD SCH (14:13)
[2020-07-14] MEDS: NA CHLORIDE 0.9% 1,000 ML IV SCH (14:14)
[2020-07-14] MEDS: HYDROCODONE/APAP 7.5/325 MG TAB PO SCH ×2 (15:12→21:48)
[2020-07-14] MEDS ORDERED: ZIPRASIDONE 20 MG CAP PO SCH (21:00)
[2020-07-14] MEDS ORDERED: lamoTRIgine 100 MG TAB PO SCH (21:00)
[2020-07-14] MEDS ORDERED: ZIPRASIDONE HCL 60 MG PO SCH (21:00)
[2020-07-14] MEDS: BUSPIRONE HCL 15 MG TABLET PO SCH (21:53)
[2020-07-14 21:56] LABS: CKMB Creatine Kinase MB 1.4 ng/mL (0.3-3.6); Troponin I 0.07 ng/mL (0.0-0.045)
[2020-07-15] MEDS: NA CHLORIDE 0.9% 1,000 ML IV SCH (02:20)
[2020-07-15 05:58] LABS: CKMB Creatine Kinase MB < 1.0 ng/mL (0.3-3.6); Creatine Phosphokinase 42 U/L (26-192); HDL Cholesterol 45 mg/dL (40-60); LDL Cholesterol, Calculated 107 (<130); Troponin I 0.07 ng/mL (0.0-0.045)
--- NOTE | 2020-07-15 08:17 | ECHO ---
HEIGHT: 5 ft 5 in WEIGHT: 123 lb 11.2 oz DATE OF STUDY: 07/14/[address]: Conor Sanches DO 2-DIMENSIONAL: YES M.MODE: YES DOPPLER: YES COLOR FLOW: YES TDS: YES PORTABLE: NO DEFINITY: NO BUBBLE STUDY: NO DIAGNOSIS: CHEST PAIN, NSTEMI CARDIAC HISTORY: CATHERIZATION: NO SURGERY: NO PROSTHETIC VALVE: NO PACEMAKER: NO MEASUREMENTS (cm) DIASTOLIC (NORMALS) SYSTOLIC (NORMALS) IVSd 0.9 (0.6-1.2) LA Diam 2.4 (1.9-4.0) LVEF 55-60% LVIDd 3.0 (3.5-5.7) LVIDs 1.9 (2.0-3.5) %FS 37% LVPWd 1.0 (0.6-1.2) Ao Diam 2.4 (2.0-3.7) 2 DIMENSIONAL ASSESSMENT: RIGHT ATRIUM: NORMAL LEFT ATRIUM: NORMAL RIGHT VENTRICLE: NORMAL LEFT VENTRICLE: NORMAL TRICUSPID VALVE: NORMAL MITRAL VALVE: PULMONIC VALVE: NORMAL AORTIC VALVE: NORMAL PERICARDIAL EFFUSION: NONE AORTIC ROOT: NORMAL LEFT VENTRICULAR WALL MOTION: NORMAL DOPPLER/COLOR FLOW: NORMAL COMMENTS: NORMAL LEFT VENTRICULAR EJECTION FRACTION 55-60%. TRACE MITRAL REGURGITATION. TECHNOLOGIST: Michelle MORGAN
[2020-07-15 08:23] VITALS: BP 169/80; TEMP 97.8
--- NOTE | 2020-07-15 08:23 | P.DS ---
Admission Date: 07/14/20 Discharge Date: 07/15/20 Primary Care Provider: Dr. Antony Disposition: ROUTINE DISCHARGE Discharge Condition: GOOD Reason for Admission: chest pain Consultations: Cardiology-Dr. Rangel Procedures: COVID: Negative ECHO: CARDIAC HISTORY: CATHERIZATION: NO SURGERY: NO PROSTHETIC VALVE: NO PACEMAKER: NO MEASUREMENTS (cm) DIASTOLIC (NORMALS) SYSTOLIC (NORMALS) IVSd 0.9 (0.6-1.2) LA Diam 2.4 (1.9-4.0) LVEF 55-60% LVIDd 3.0 (3.5-5.7) LVIDs 1.9 (2.0-3.5) %FS 37% LVPWd 1.0 (0.6-1.2) Ao Diam 2.4 (2.0-3.7) 2 DIMENSIONAL ASSESSMENT: RIGHT ATRIUM: NORMAL LEFT ATRIUM: NORMAL RIGHT VENTRICLE: NORMAL LEFT VENTRICLE: NORMAL TRICUSPID VALVE: NORMAL MITRAL VALVE: PULMONIC VALVE: NORMAL AORTIC VALVE: NORMAL PERICARDIAL EFFUSION: NONE AORTIC ROOT: NORMAL LEFT VENTRICULAR WALL MOTION: NORMAL DOPPLER/COLOR FLOW: NORMAL COMMENTS: NORMAL LEFT VENTRICULAR EJECTION FRACTION 55-60%. TRACE MITRAL REGURGITATION. Medical Problem List: Weakness, chest pain Hypertension uncontrolled Tobacco abuse Bipolar disorder Chronic pain Hyperlipidemia Brief History of Present Illness: 70 y o female pt with hx of tobacco use, chronic pain issues, hx of Bipolar disorder who was brought to the hospital for work up of suspected ACS. She was initially worked up at [facility] and was found to have a slight troponin bump. She was transferred to [place] for further evaluation. She attested to some weakness and tingling in the left hand. She has ocassions of dizziness and weakness but she denied overt chest pain. No sob, maier, pnd or orthopnea symptoms. She is a heavy smoker. she did report having a LHC about 20yrs ago which was said to be clean. Hospital Course: Patient was transferred from [facility] due to weakness and noted slight elevation in troponin. Patient with history of tobacco abuse and hypertension. Patient was seen and evaluated by cardiology. Echocardiogram unremarkable. Troponin improved. No need for cardiac intervention at this time. Blood pressures were elevated. Medications have been adjusted. Atenolol has been discontinued and replace of metoprolol. At discharge patient will continue with metoprolol 25 mg 1 pill twice daily. Recommend to maintain blood pressure less than 130/80. May need to hold medication if blood pressure systolic less than 110 or heart rate less than 60. At discharge patient will follow up with cardiology in 1 week. Cardiology plans for outpatient cardiac stress test to further evaluate. Patient with tobacco abuse. Tobacco cessation addressed in detail. Patient will be provided nicotine patch to help with cessation. Patient with hypertension. As mentioned above medications have been adjusted for better blood pressure control. Atenolol will be discontinued. This has been replaced with metoprolol. At discharge patient will continue with metoprolol 25 mg 1 pill twice daily. Recommend to maintain blood pressure less than 130/80. May need to hold medication if blood pressure systolic less than 110 or heart rate less than 60. Follow-up with PCP or cardiology to further monitor and adjust medication. Patient with bipolar disorder. At discharge she will continue with her me dications including BuSpar 30 mg 1 pill twice daily, Lamictal 100 mg at bedtime, and Geodon 60 mg daily. Patient also takes Xanax 1 mg 1 pill twice daily. Recommend follow-up with her PCP or psychiatry to further monitor and adjust medication. Patient with chronic pain. At discharge she will continue with hydrocodone as directed. Recommend follow-up with pain management or her PCP to further address. Patient with hyperlipidemia. LDL 107. Considering her risk factors recommendation is to recheck labfasting lipid panel in 4 to 6 weeks after lifestyle modification education. If still elevated PCP will need to consider adding statin medication. This can be further addressed by her PCP or cardiology. Vital Signs/Physical Exam: Temp Pulse Resp BP Pulse Ox 97 F 85 17 140/64 98 07/15/20 05:21 07/15/20 04:00 07/15/20 04:00 07/15/20 04:00 07/15/20 04:00 General: Alert, In no apparent distress, Oriented x3, Cooperative HEENT: Atraumatic Neck: Supple Respiratory: Clear to auscultation bilaterally, Normal air movement Cardiovascular: Normal pulses, Regular rate/rhythm Gastrointestinal: Normal bowel sounds, Soft and benign, Non-distended Integumentary: No tenderness/swelling Neurological: Normal speech, Normal strength at 5/5 x4 extr, Normal tone, Normal affect Laboratory Data at Discharge: WBC 9.20 K/uL (4.3-10.9) 07/14/20 13:11 Hgb 11.9 g/dL (12.0-15.0) L 07/14/20 13:11 Hct 36.4 % (36.0-45.0) 07/14/20 13:11 Plt Count 323 K/uL (152-406) 07/14/20 13:11 Sodium 143 mmol/L (136-145) 07/14/20 13:11 Potassium 3.9 mmol/L (3.5-5.1) 07/14/20 13:11 BUN 10 mg/dL (7-18) 07/14/20 13:11 Creatinine 0.78 mg/dL (0.55-1.3) 07/14/20 13:11 Glucose 86 mg/dL (74-106) 07/14/20 13:11 Phosphorus 3.3 mg/dL (2.5-4.9) 07/14/20 13:11 Magnesium 2.1 mg/dL (1.8-2.4) 07/14/20 13:11 Total Bilirubin 0.2 mg/dL (0.2-1.0) 07/14/20 13:11 AST 7 U/L (15-37) L 07/14/20 13:11 ALT 10 U/L (12-78) L 07/14/20 13:11 Alkaline Phosphatase 67 U/L (45-117) 07/14/20 13:11 Troponin I 0.07 ng/mL (0.0-0.045) H 07/15/20 05:16 Triglycerides 184 mg/dL (<150) H 07/15/20 05:16 Cholesterol 189 mg/dL (<200) 07/15/20 05:16 HDL Cholesterol 45 mg/dL (40-60) 07/15/20 05:16 Cholesterol/HDL Ratio 4.20 07/15/20 05:16 Home Medications: ALPRAZolam [Xanax*] 1 tab PO BID 07/14/20 Buspirone HCl [Buspar] 30 mg PO BID 07/14/20 Hydrocodone 7.5/APAP 325 [[place] 7.5/325 mg*] 1 tab PO BID 07/14/20 Lamotrigine [Lamictal] 100 mg PO BEDTIME 07/14/20 Ziprasidone HCl [Geodon] 1 cap PO BEDTIME 07/14/20 Metoprolol Tartrate [Lopressor*] 25 mg PO BID #60 tab 07/15/20 Nicotine [Nicoderm] 21 mg TD DAILY #30 patch.td24 07/15/20 New Medications: Metoprolol Tartrate [Lopressor*] 25 mg PO BID #60 tab Nicotine [Nicoderm] 21 mg TD DAILY #30 patch.td24 Physician Discharge Instructions: Patient was transferred from [facility] due to weakness and noted slight elevation in troponin. Patient with history of tobacco abuse and hypertension. Patient was seen and evaluated by cardiology. Echocardiogram unremarkable. Troponin improved. No need for cardiac intervention at this time. Blood pressures were elevated. Medications have been adjusted. Atenolol has been discontinued and replace of metoprolol. At discharge patient will continue with metoprolol 25 mg 1 pill twice daily. Recommend to maintain blood pressure less than 130/80. May need to hold medication if blood pressure systolic less than 110 or heart rate less than 60. At discharge patient will follow up with cardiology in 1 week. Cardiology plans for outpatient cardiac stress test to further evaluate. Patient with tobacco abuse. Tobacco cessation addressed in detail. Patient will be provided nicotine patch to help with cessation. Patient with hypertension. As mentioned above medications have been adjusted for better blood pressure control. Atenolol will be discontinued. This has been replaced with metoprolol. At discharge patient will continue with metoprolol 25 mg 1 pill twice daily. Recommend to maintain blood pressure less than 130/80. May need to hold medication if blood pressure systolic less than 110 or heart rate less than 60. Follow-up with PCP or cardiology to further monitor and adjust medication. Patient with bipolar disorder. At discharge she will continue with her medications including BuSpar 30 mg 1 pill twice daily, Lamictal 100 mg at bedtime, and Geodon 60 mg daily. Patient also takes Xanax 1 mg 1 pill twice daily. Recommend follow-up with her PCP or psychiatry to further monitor and adjust medication. Patient with chronic pain. At discharge she will continue with hydrocodone as directed. Recommend follow-up with pain management or her PCP to further address. Patient with hyperlipidemia. LDL 107. Considering her risk factors recommendation is to recheck labfasting lipid panel in 4 to 6 weeks after lifestyle modification education. If still elevated PCP will need to consider adding statin medication. This can be further addressed by her PCP or cardiology. Diet: AHA Activity: Ad margarita Time spent managing pt's care (in minutes): 55
[2020-07-15] MEDS: HYDROCODONE/APAP 7.5/325 MG TAB PO SCH (08:52)
[2020-07-15] MEDS: NICOTINE 21 MG/PAT TD SCH (08:53)
[2020-07-15] MEDS: BUSPIRONE HCL 15 MG TABLET PO SCH (08:53)
[2020-07-15] MEDS ORDERED: ENOXAPARIN 40 MG/0.4 ML SQ SCH (09:00)
[2020-07-15] MEDS ORDERED: atenoloL 25 MG TAB PO SCH (09:00)
[2020-07-15 09:02] VITALS: O2SAT 97
[2020-07-15] MEDS ORDERED: METOPROLOL TAR 25 MG TAB PO SCH (18:00)
--- NOTE | 2020-07-16 07:28 | EKG ---
Test Date: 2020-07-14 Test Time: 13:19:46 Public Information Coordinator: JOSE DAVID MEASUREMENT RESULTS: Intervals: Rate: 77 NE: 162 QRSD: 78 QT: 406 QTc: 459 [place]: P: 46 NE: 162 QRS: 21 T: 51 INTERPRETIVE STATEMENTS: Normal sinus rhythm Normal ECG No previous ECG available for comparison Electronically Signed On 07-16-20 07:22:44 CDT by Damion Rangel
--- NOTE | 2020-07-16 12:33 | CON ---
Date of Consultation: 07/15/2020 Reason For Consult: The patient with atypical chest pain, elevated troponin. History Of Present Illness: Ms. Palencia is a 70-year-old woman. She has a history of bipolar disord er, tobacco use, chronic pain, hypertension, depression. She is followed by Dr. Bustillos. Came in w ith left arm tingling and numbness, atypical chest pain. This has been going on for days. No nausea , vomiting, diaphoresis, PND, orthopnea, fever, edema, palpitations, or syncope. Her pain is worse w ith movement. Her left arm tingling last all day. Troponin was 0.08 and then 0.07, not consistent w ith acute coronary syndrome. EKG was normal. Chest x-ray is normal. BNP is normal. Past Medical History: As stated above. Allergies: TO PENICILLIN AND TRAMADOL. Medications: At home include atenolol, Buspar, and Xanax. Review of Systems: Negative. Social History: Negative. Family History: Noncontributory. Physical Examination: Vital Signs: Stable, afebrile. HEENT: Negative. Neck: Supple. No bruit. Chest: Clear to auscultation and percussion. Cardiac: Regular rhythm and rate. No murmur, gallops, or rubs. Abdomen: Benign. Extremities: Revealed no clubbing, cyanosis, or edema. Diagnostic Data: As stated earlier. Impression And Plan: 1.Atypical chest pain. 2.Left arm tingling. 3.Elevated troponin, likely not consistent with acute coronary syndrome. I am comfortable with Ms. Palencia going home. She should have an outpatient workup including echocardiogram, Lexiscan, and a c arotid Doppler. I will see her in the office soon. WILLEM/ANGIE Voice ID: [id number] Report ID: [id number]
== END 2020-07-15 11:00 | disposition home or self-care (01) ==
LOC: 2ND 11:57
PROVIDERS: ADMIT Internal Medicine Nephrology; ATTEND Family Medicine
DX: R07.89 Other chest pain (principal); R53.1 Weakness; I10 Essential (primary) hypertension; R77.8 Other specified abnormalities of plasma proteins; R20.2 Paresthesia of skin; G89.29 Other chronic pain; E78.5 Hyperlipidemia, unspecified; F31.9 Bipolar disorder, unspecified; F32.9 Major depressive disorder, single episode, unspecified; Z72.0 Tobacco use; Z71.6 Tobacco abuse counseling; Z88.0 Allergy status to penicillin
CPT/HCPCS: 93005; 93306; 85025; 36415 ×2; 83735; 82550 ×3; 84100; 80061; 84484 ×3; 82553 ×3; 80053; J1650; J7030; G0378; G0379

== ENCOUNTER 2022-04-06 10:12 | Emergency (ER) | payer OTHER ==
--- OUTSIDE RECORDS SUMMARY | 2022-04-06 10:16 | XMS REPORT | Continuity of Care Document ---
:1950 Author Organization [facility] t Address [facility] Harsha Crespo [address] [place] [address] Care Team Providers Name Role Phone [phone] Attending Clinician Unavailable Aertha Cole Anavella Attending Clinician Unava GONZALO Peters Attending Clinician Unavailable Tatiana Roa Attending Clinician Unavailable [id number] Admitting Clinician Unavailable Fidel Cole Anav Admitting Clinician Unavailable GONZALO BARRETT Admitting Clinician Unavailable Tatiana Roa Admitting Clinician Unavailable MALINDA LEWIS Admitting Clinician Unavailable Payers Payer Name Policy Type Policy Number Effective Date Expiration Date S kylee [facility] [id number] [facility] [id number] 2019 ALL 00:00:00 Problems Condition Condition Condition Status Onset Resolution Last Treating Co mments Source Name Details Category Date Date Treatment Clinician Date Rhabdomyol Rhabdomyol Disease Active [facility] Syncope, Syncope, Disease Active [facility] un[facility]ifie unspecifie 12-03 Radha kes d syncope d syncope 00:00: Medi sybil type type 00 Center Allergies, Adverse Reactions, Alerts Allergy Allergy Status Severity Reaction(s) Onset Inactive Treating Comm ents Source Name Type Date Date Clinician Penicill DA Active U UNKN 2020-03 [facility] 00 are [place] Sulfa DA Active U UNKN 2020-03 [facility] (Sulfona [facility] 00:00: [facility] Antibiot 00 are ics) [place] ketorola DA Active U UNKN 2021-1 [facility] c 2-30 [facility] 00:00: [facility] 00 are [place] Ketorola Drug Active Other (See Patient [facility] Intolera Comments) 12-02 says she Verónica es nce 00:00: passed Medical 00 out Center PENICILL Allergy Active High Anaphylaxis [facility] Center SULFA Allergy Active High Itching [facility] (SULFONA 12-02 [facility] MIDE 00:00: Medical ANTIBIOT 00 Center ICS) KETOROLA Allergy Active Other [facility] 12[facility]02 [facility] 00 Center Penicill Propensi Active Anaphylaxis [facility] ins ty to 12-02 [facility] adverse 00:00: Medical reaction 00 Center s Sulfa Drug Active Itching [facility] (Sulfona Allergy 12-02 [facility] mide 00:00: Medical Antibiot 00 Center ics) Family History Family Member Diagnosis Comments Start Date Stop Date Source Natural father Diabetes [facility] Maternal grandmother Stroke [facility] Natural mother Kidney disease [facility] Social History Social Habit Start Date Stop Date Quantity Comments Source History SDOH [facility] Alcohol Binge Medical [facility] History SDOH [facility] Alcohol Comment Medical C enter History SDOH [facility] Alcohol Std Drinks Medica [facility] Alcohol intake 2019-12-04 2019-12-[address] Verónica es 00:00:00 00:00:00 non-drinker of Medical Ce nter alcohol (finding) History SDOH 2019-12-04 2019-12-[address] [facility] Alcohol Frequency 00:00:00 00:00:00 [facility] Tobacco use and 2019-12-03 2019-12-[address] Radha kes exposure 00:00:00 00:00:00 [facility] Sex Assigned At [address] [address] Radha kes 00:00:00 00:00:00 [facility] Smoking Status Start Date Stop Date Source Current every day smoker 2019-12-03 00:00:00 [facility] Medications Ordered Filled Start Stop Current Ordering Indication Dosage Frequency Signature Comments Components Source Medication Medication Date Date Medication? Clinician (SIG) Name Name atenoloL Yes hypertensio 12.5mg QD Take 12.[address] (TENORMIN) 9-20 n mg by [facility] 25 MG 18:04: mouth Medical tablet 51 daily. Center aspirin 81 2019-0 Yes 81mg QD Take [address] MG EC 9-20 by mouth [facility] tablet 18:04: daily. Medical 51 Center busPIRone 0 Yes 7.5mg [id number] Take 7.[address] (BUSPAR) 9-20 [id number] mg by Luke s 7.5 MG 18:04: 3D mouth 3 Medical tablet 51 (three) Center times daily. fluticasone Yes 2{spray QD [address] (VERAMYST) 9-20 } by Nasal [facility] 27.5 18:04: route Medical mcg/actuati 51 daily. Center on nasal spray valbenazine Yes tardive 80mg QD Take [address] (INGREZZA) 9-20 dyskinesia by mouth [facility] 80 mg Cap 18:04: daily. Medica l [address] [place] gabapentin 0 Yes 600mg QD Take [address] (NEURONTIN) 9-20 mg by [facility] 600 MG 18:04: mouth Medical tablet 51 daily. [place] lamoTRIgine Yes 100mg QD Take [address] (LAMICTAL) 9-20 mg by [facility] 100 MG 18:04: mouth Medical tablet 51 nightly. [place] ziprasidone Yes 60mg QD Take [address] (GEODON) 60 9-20 by mouth Luke s MG capsule 18:04: nightly. Med ical [address] [place] ALPRAZolam Yes .5mg Take 0.[address] (XANAX) 1 9-20 tablets [facility] MG tablet 00:00: (0.5 mg Medic al 00 total) by Center mouth every 12 (twelve) hours. Max Daily Amount: 1 mg Vital Signs Vital Name Observation Time Observation Value Comments Source HEIGHT 2019-12-03 00:00:00 152.4 cm WEIGHT 2019-12-03 00:00:00 57.924 kg HEIGHT 2019-12-03 00:00:00 152.4 cm WEIGHT 2019-12-03 00:00:00 57.924 kg Procedures Procedure Date / Time Performed Performing Clinician Samanta cortez [id number] 2021-03-17 00:00:00 [id number] [facility] [place] Plan of Care Planned Activity Planned Date Details Comments Source Future Scheduled 2022-03-[address] [facility] Test 00:00:00 (12+) [code = Medical Center DEPRESSION SCREENING (12+)] Future Scheduled 2022-03-18 FALLS RISK SCREENING [facility] Test 00:00:00 [code = FALLS RISK Medical C enter SCREENING] Future Scheduled 2021-11-16 INFLUENZA VACCINE (#1) [facility] 00:00:00 [code = INFLUENZA Medical Ce nter VACCINE (#1)] Future Scheduled 2020-12-[address] [facility] Test 00:00:00 Counseling and Medical Cente r Screening (12+) [code = Tobacco Cessation Counseling and Screening (12+)] Future Scheduled 2020-03-[address] [facility] Test 00:00:00 WELLNESS (YEAR 2 or Medical Center FIRST YEAR if no IPPE) [code = MEDICARE ANNUAL WELLNESS (YEAR 2 or FIRST YEAR if no IPPE)] Future Scheduled 2000-02-02 SHINGLES VACCINES ([address] [facility] Test 00:00:00 2) [code = SHINGLES Medical Center VACCINES (1 of 2)] Future Scheduled 1969 DTAP/TDAP/TD VACCINES [facility] Test 00:00:00 (1 - Tdap) [code = Medical C enter DTAP/TDAP/TD VACCINES (1 - Tdap)] Future Scheduled 1968-02-02 HEPATITIS C SCREENING [facility] 00:00:00 [code = HEPATITIS C Medical Center SCREENING] Future Scheduled 1956-02-02 PNEUMOCOCCAL 65+ YRS ([address] [facility] Test 00:00:00 - PCV) [code = Medical Cente r PNEUMOCOCCAL 65+ YRS (1 - PCV)] Future Scheduled 1950 COVID-19 VACCINE (#1) [facility] Test 00:00:00 [code = COVID-[address] VACCINE (#1)] Future Scheduled 1950 Screening for malignant [facility] Test 00:00:00 neoplasm of breast Medical C enter (procedure) [code = 381100067] Future Scheduled 1950 CT Colonography (combo) [facility] Test 00:00:00 [code = CT Colonography [facility] (combo)] Future Scheduled 1950 Screening for malignant [facility] Test 00:00:00 neoplasm of colon Medical Ce nter (procedure) [code = 289938031] Future Scheduled 1950 Screening for malignant [facility] Test 00:00:00 neoplasm of colon Medical Ce nter (procedure) [code = 436344000] Future Scheduled 1950 DXA SCAN [code = DXA [facility] Test 00:00:00 SCAN] [facility] Future Scheduled 1950 Screening for malignant [facility] Test 00:00:00 neoplasm of colon Medical Ce nter (procedure) [code = 075659640] Future Scheduled 1950 Screening for malignant [facility] Test 00:00:00 neoplasm of colon Medical Ce nter (procedure) [code = 606604552] Future Scheduled 1950 Sigmoidoscopy [code = [facility] Test 00:00:00 Sigmoidoscopy] Medical Cente r Encounters Start End Encounter Admission Attending Care Care Encounter Source Date/Time Date/Time Type Type Clinicians Facility Department ID 2021-04-13 Outpatient 3 [id number] [facility] REF [id number] [facility] 10:34:48 [id number] [place] 2021-04-13 Outpatient 3 [id number] [facility] REF [id number] [facility] 10:33:42 [id number] [place] 2021-04-13 Outpatient [address] [facility] ENCPL MIRIAM [id number] [facility] 10:22:26 hez, 0811 [facility] [place] 2021-04-13 Outpatient [address] [facility] ENCPL MIRIAM [id number] [facility] 10:21:25 hez, 0807 [facility] [place] 2021-04-13 Outpatient 3 [id number] ENCPL REF [id number] [facility] 10:20:59 0806 [facility] [place] 2020-12-21 Inpatient ER BERNICE BARRETT Cardiology [id number] [facility] 07:29:08 GONZALO 2021-03-16 2021-03-22 Inpatient EM Crispin, YENNYTB TELE [id number] [facility] 19:28:00 19:33:00 Tatiana Raymond on [facility] [place] Results Test Description Test Time Test Comments Results Result Comments Source CBC W/AUTO DIFF 2021-03-22 07:28:00 Test Item Value Reference Range Interpretation Comme nts WHITE BLOOD CELL (test code = WBC) 5.93 K/mm3 5.0-12.0 N RED BLOOD CELL (test code = RBC) 3.49 M/mm3 4.20-5.40 L HEMOGLOBIN (test code = HGB) 9.7 G/DL 12.0-16.0 L HEMATOCRIT (test code = HCT) 30.5 % 34.9-44.5 L MEAN CELL VOLUME (test code = MCV) 87 fL 81-99 N MEAN CELL HGB (test code = MCH) 27.8 PGM 27-31 N MEAN CELL HGB CONCENTRATION (test code = MCHC) 31.8 G/DL 33-37 L RED CELL DISTRIBUTION WIDTH (test code = RDW) 15.9 % 11.6-16. 2 N PLATELET COUNT (test code = PLT) 232 K/mm3 130-400 N MEAN PLATELET VOLUME (test code = MPV) 10.1 fl 7.4-10.4 N NEUTROPHIL % (test code = NT%) 65.3 % 43-65 H IMMATURE GRANULOCYTE % (test code = IG%) 0.3 % 0.0-2.0 N LYMPHOCYTE % (test code = LY%) 21.4 % 20.5-45.5 N MONOCYTE % (test code = MO%) 8.8 % 5.5-11.7 N EOSINOPHIL % (test code = EO%) 3.7 % 0.9-2.9 H BASOPHIL % (test code = BA%) 0.5 % 0.2-1.0 N NUCLEATED RBC % (test code = NRBC%) 0.0 % 0-1.0 N NEUTROPHIL # (test code = NT#) 3.87 K/mm3 2.2-4.8 N LYMPHOCYTE # (test code = LY#) 1.27 K/mm3 1.3-2.9 L MONOCYTE # (test code = MO#) 0.52 K/mm3 0.3-0.8 N EOSINOPHIL # (test code = EO#) 0.22 K/MM3 0.0-0.2 H BASOPHIL # (test code = BA#) 0.03 K/mm3 0.0-0.1 N BASIC METABOLIC [id number] 07:03:00 Test Item Value Reference Range Interpretation Comments SODIUM (test code 141 mmol/L 136-145 N = NA) POTASSIUM (test 4.3 mmol/L 3.4-4.5 N code = K) CHLORIDE (test 107 mmol/L 98-107 N code = CL) CARBON DIOXIDE 27 mmol/l 20-31 N (test code = CO2) GLUCOSE (test code 101 mg/dL 74-106 N = GLU) BLOOD UREA 16 mg/dL 9-23 N NITROGEN (test code = BUN) GLOMERULAR >=60 max >60 The estimated FILTRATION RATE estimate glomerular (test code = GFR) filtration rate is computed usingpatient ra ce, age (>18), sex, and serum creatinin e. If anyof the neede d data elements a re missing the Laboratory noelle ot compute an estimation of t he glomerular filtration rate . CREATININE (test 0.70 mg/dL 0.55-1.02 N code = CREAT) CALCIUM (test code 9.4 mg/dL 8.7-10.4 N = CA) BASIC METABOLIC [id number] 07:19:00 Test Item Value Reference Range Interpretation Comments SODIUM (test code 142 mmol/L 136-145 N = NA) POTASSIUM (test 4.9 mmol/L 3.4-4.5 H code = K) CHLORIDE (test 110 mmol/L 98-107 H code = CL) CARBON DIOXIDE 29 mmol/l 20-31 N (test code = CO2) GLUCOSE (test code 97 mg/dL 74-106 N = GLU) BLOOD UREA 17 mg/dL 9-23 NITROGEN (test code = BUN) GLOMERULAR >=60 max >60 The estimated FILTRATION RATE estimate glomerular (test code = GFR) filtration rate is computed usingpatient ra ce, age (>18), sex, and serum creatinin e. If anyof the neede d data elements a re missing the Laboratory noelle ot compute an estimation of t he glomerular filtration rate . CREATININE (test 0.69 mg/dL 0.55-1.02 N code = CREAT) CALCIUM (test code 9.8 mg/dL 8.7-10.4 N = CA) CBC W/AUTO [id number] 07:05:00 Test Item Value Reference Range Interpretation Comments WHITE BLOOD CELL (test code = WBC) 5.77 K/mm3 5.0-12.0 N RED BLOOD CELL (test code = RBC) 3.47 M/mm3 4.20-5.40 L HEMOGLOBIN (test code = HGB) 9.6 G/DL 12.0-16.0 L HEMATOCRIT (test code = HCT) 30.4 % 34.9-44.5 L MEAN CELL VOLUME (test code = MCV) 88 fL 81-99 N MEAN CELL HGB (test code = MCH) 27.7 PGM 27-31 N MEAN CELL HGB CONCENTRATION (test 31.6 G/DL 33-37 L code = MCHC) RED CELL DISTRIBUTION WIDTH (test 16.0 % 11.6-16.2 N code = RDW) PLATELET COUNT (test code = PLT) 209 K/mm3 130-400 N MEAN PLATELET VOLUME (test code = 9.8 fl 7.4-10.4 N MPV) NEUTROPHIL % (test code = NT%) 66.5 % 43-65 H IMMATURE GRANULOCYTE % (test code 0.2 % 0.0-2.0 N = IG%) LYMPHOCYTE % (test code = LY%) 20.5 % 20.5-45.5 N MONOCYTE % (test code = MO%) 8.5 % 5.5-11.7 N EOSINOPHIL % (test code = EO%) 3.8 % 0.9-2.9 H BASOPHIL % (test code = BA%) 0.5 % 0.2-1.0 N NUCLEATED RBC % (test code = 0.0 % 0-1.0 N NRBC%) NEUTROPHIL # (test code = NT#) 3.84 K/mm3 2.2-4.8 N LYMPHOCYTE # (test code = LY#) 1.18 K/mm3 1.3-2.9 L MONOCYTE # (test code = MO#) 0.49 K/mm3 0.3-0.8 N EOSINOPHIL # (test code = EO#) 0.22 K/MM3 0.0-0.2 H BASOPHIL # (test code = BA#) 0.03 K/mm3 0.0-0.1 N COMPREHENSIVE METABOLIC [id number] 07:50:00 Test Item Value Reference Range Interpretation Comments SODIUM (test code = 141 mmol/L 136-145 N NA) POTASSIUM (test 4.1 mmol/L 3.4-4.5 N code = K) CHLORIDE (test code 111 mmol/L 98-107 H = CL) CARBON DIOXIDE 25 mmol/l 20-31 N (test code = CO2) GLUCOSE (test code 108 mg/dL 74-106 H = GLU) BLOOD UREA NITROGEN 9 mg/dL 9-23 (test code = BUN) GLOMERULAR >=60 max >60 The estimated FILTRATION RATE estimate glomerular (test code = GFR) filtration rate is computed usingpatient ra ce, age (>18), sex, and serum creatinin e. If anyof the ne eded data elements a re missing the Laboratory noelle ot compute an estimation of t he glomerular filtration rate . CREATININE (test 0.70 mg/dL 0.55-1.02 N code = CREAT) TOTAL PROTEIN (test 5.7 g/dL 5.7-8.2 N code = PROT) ALBUMIN (test code 2.8 g/dl 3.4-5.0 L = ALB) CALCIUM (test code 9.1 mg/dL 8.7-10.4 N = CA) BILIRUBIN TOTAL 0.4 mg/dL 0.2-1.1 N (test code = BILT) SGOT/AST (test code 12 U/L 0-34 N = AST) SGPT/ALT (test code < 7 U/L 10-49 L = ALT) ALKALINE 42 U/L 46-116 L PHOSPHATASE (test code = ALKP) CBC W/AUTO [id number] 06:58:00 Test Item Value Reference Range Interpretation Comments WHITE BLOOD CELL (test code = WBC) 7.24 K/mm3 5.0-12.0 N RED BLOOD CELL (test code = RBC) 3.44 M/mm3 4.20-5.40 L HEMOGLOBIN (test code = HGB) 9.6 G/DL 12.0-16.0 L HEMATOCRIT (test code = HCT) 30.2 % 34.9-44.5 L MEAN CELL VOLUME (test code = MCV) 88 fL 81-99 N MEAN CELL HGB (test code = MCH) 27.9 PGM 27-31 N MEAN CELL HGB CONCENTRATION (test 31.8 G/DL 33-37 L code = MCHC) RED CELL DISTRIBUTION WIDTH (test 16.3 % 11.6-16.2 H code = RDW) PLATELET COUNT (test code = PLT) 206 K/mm3 130-400 N MEAN PLATELET VOLUME (test code = 9.5 fl 7.4-10.4 N MPV) NEUTROPHIL % (test code = NT%) 72.8 % 43-65 H IMMATURE GRANULOCYTE % (test code 0.4 % 0.0-2.0 N = IG%) LYMPHOCYTE % (test code = LY%) 16.3 % 20.5-45.5 L MONOCYTE % (test code = MO%) 7.2 % 5.5-11.7 N EOSINOPHIL % (test code = EO%) 2.9 % 0.9-2.9 N BASOPHIL % (test code = BA%) 0.4 % 0.2-1.0 N NUCLEATED RBC % (test code = 0.0 % 0-1.0 N NRBC%) NEUTROPHIL # (test code = NT#) 5.27 K/mm3 2.2-4.8 H LYMPHOCYTE # (test code = LY#) 1.18 K/mm3 1.3-2.9 L MONOCYTE # (test code = MO#) 0.52 K/mm3 0.3-0.8 N EOSINOPHIL # (test code = EO#) 0.21 K/MM3 0.0-0.2 H BASOPHIL # (test code = BA#) 0.03 K/mm3 0.0-0.1 N COMPREHENSIVE METABOLIC [id number] 06:51:00 Test Item Value Reference Range Interpretation Comments SODIUM (test code = 143 mmol/L 136-145 N NA) POTASSIUM (test 3.7 mmol/L 3.4-4.5 N code = K) CHLORIDE (test code 114 mmol/L 98-107 H = CL) CARBON DIOXIDE 25 mmol/l 20-31 N (test code = CO2) GLUCOSE (test code 106 mg/dL 74-106 N = GLU) BLOOD UREA NITROGEN 14 mg/dL 9-23 N (test code = BUN) GLOMERULAR >=60 max >60 The estimated FILTRATION RATE estimate glomerular (test code = GFR) filtration rate is computed usingpatient ra ce, age (>18), sex, and serum creatinin e. If anyof the ne eded data elements a re missing the Laboratory noelle ot compute an estimation of t he glomerular filtration rate . CREATININE (test 0.73 mg/dL 0.55-1.02 N code = CREAT) TOTAL PROTEIN (test 5.6 g/dL 5.7-8.2 L code = PROT) ALBUMIN (test code 2.9 g/dl 3.4-5.0 L = ALB) CALCIUM (test code 8.8 mg/dL 8.7-10.4 N = CA) BILIRUBIN TOTAL 0.5 mg/dL 0.2-1.1 N (test code = BILT) SGOT/AST (test code 12 U/L 0-34 N = AST) SGPT/ALT (test code < 7 U/L 10-49 L = ALT) ALKALINE 44 U/L 46-116 L PHOSPHATASE (test code = ALKP) CBC W/AUTO [id number] 06:35:00 Test Item Value Reference Range Interpretation Comments WHITE BLOOD CELL (test code = WBC) 7.80 K/mm3 5.0-12.0 N RED BLOOD CELL (test code = RBC) 3.49 M/mm3 4.20-5.40 L HEMOGLOBIN (test code = HGB) 9.8 G/DL 12.0-16.0 L HEMATOCRIT (test code = HCT) 29.6 % 34.9-44.5 L MEAN CELL VOLUME (test code = MCV) 85 fL 81-99 N MEAN CELL HGB (test code = MCH) 28.1 PGM 27-31 N MEAN CELL HGB CONCENTRATION (test 33.1 G/DL 33-37 N code = MCHC) RED CELL DISTRIBUTION WIDTH (test 16.3 % 11.6-16.2 H code = RDW) PLATELET COUNT (test code = PLT) 202 K/mm3 130-400 N MEAN PLATELET VOLUME (test code = 10.3 fl 7.4-10.4 N MPV) NEUTROPHIL % (test code = NT%) 72.1 % 43-65 H IMMATURE GRANULOCYTE % (test code 0.3 % 0.0-2.0 N = IG%) LYMPHOCYTE % (test code = LY%) 17.8 % 20.5-45.5 L MONOCYTE % (test code = MO%) 8.1 % 5.5-11.7 N EOSINOPHIL % (test code = EO%) 1.3 % 0.9-2.9 N BASOPHIL % (test code = BA%) 0.4 % 0.2-1.0 N NUCLEATED RBC % (test code = 0.0 % 0-1.0 N NRBC%) NEUTROPHIL # (test code = NT#) 5.63 K/mm3 2.2-4.8 H LYMPHOCYTE # (test code = LY#) 1.39 K/mm3 1.3-2.9 N MONOCYTE # (test code = MO#) 0.63 K/mm3 0.3-0.8 N EOSINOPHIL # (test code = EO#) 0.10 K/MM3 0.0-0.2 N BASOPHIL # (test code = BA#) 0.03 K/mm3 0.0-0.1 N - XR HIP W/PEL UNI 2+V [id number] 18:44:00 [facility] 1950 Sex: FPatient Name: CHARLA MCCOLLUM Unit No: [id number] EXAMS: CPT: [id number] XR HIP W/PEL UNI 2+[place] [address] APpelvis and left hip, 3 views, 03/17/2021. COMPARISON: 03/16/2021. Clinical: Postop. Comment: There are metallic skin saurabh and soft tissue swelling/emphysema overlying the left hip. There has been interval rodding of the acute comminuted left femoral intertrochanteric fracture since preoperative study of 03/16/2021. The major fragments appear in anatomical alignment. The other osseous structures remain intact. The bowel gas pattern is unremarkable. IMPRESSION: Status post left femoral rodding since preoperative study of 03/16/2021. at 1844 Reported and signed by: Rohan Iglesias MD CC: Baal Nguyen MD; Favio Jennings MD; Undefined Provider Technologist: Yuri Jay; Lulú Mohr Fluoro Time: DAP (Gy m2): Air Kerma (mGy): Trscr Dt/Tm: 03/17/2021 (1843) by:[email or web address] Orig Print D/T: S: 03/17/2021 (1846) BATCH NO: N/A Name: CHARLA MCCOLLUM Phys: ENEIDA - Favio Jennings V [address] [facility] : 1950 Age: 71 Sex: F [place] Loc: T.440 A Exam Date: 03/17/2021 Status: ADM IN PH:FAX: PAGE 1 Signed ReportCOVID 19 Asymptomatic IH [id number] 00:01:00 Test Item Value Reference Range Interpretation Comments COVID 19 Asymptomatic NEGATIVE Negative NEGAT KENROY RESULTS IH AG (test code = SHOULD BE TREATED COVNONPUIAG) PRESUMPTIVE ANDCONFIRMED WT IH A MOLECULAR ASSAY , IF NECESSARY FOR PATIENTMANAGEME NT. NEGATIVE RESULT S DO NOT RULE OUT CO VID-19 ANDSHOULD NOT B E USED THE SOLE BAS IS FOR TREATMENT ORPAT IENT MANAGEMENT DECI SIONS, INCLUDING INFEC TION CONTROLDECISION S. NEGATIVE RESULT S SHOULD BE CONSI DERED IN THECONTEXT O F A PATIENT'S RECEN T EXPOSURES, HIST ORY AND THEPRESENCE OF CLINICAL SIGNS AND SYMPTOMS CONSIS TENT WITHCOVID-19. PROTHROMBIN [id number] 20:15:00 Test Item Value Reference Range Interpretation Comments PROTHROMBIN TIME 11.0 SECONDS 9.5-12.9 N PATIENT (test code = PTP) INTERNATIONAL NORMAL 1.0 0.85-1.15 N The INR is to be used RATIO (test code = only for monitoring INR) ORAL ANTICOAGULANTTH ERAPY. Indication INR Value1. Prophylaxis/bird atment of: Venous Thro mbosis, Pulmonary Embol ism 2.0 - 3.02. Prevent ion of systemic emboli sm from: Tissue he art valves 2.0 - 3. 0 Acute myocardial infa rction (to present sys temic embolism)* 2.0 - 3.0 Valvular heart disease 2.0 - 3.0 Atria l fibrillation 2. 0 - 3.03. Mechanica l prosthetic valv es (high risk) 2.5 - 3.5 * If oral anticoagulant t herapy is elected to preventrecurren t myocardial infa rction, an INR of 2.5-3 .5 isrecommended, consistent with Food and Drug Administrationr ecommen dations. THROMBOPLASTIN TIME [id number] 20:15:00 Test Item Value Reference Range Interpretation Comments THROMBOPLASTIN TIME PARTIAL (test 24 SECONDS 25.1-36.5 L code = PTT) - CT C-SPINE W/O [id number] 20:00:00 [facility] : 1950 Sex: FPatient Name: CHARLA MCCOLULM Unit No: [id number] EXAMS: CPT: [id number] CT C-SPINE W/O CONT 36208 CT CERVICAL SPINE WITHOUT CONTRAST, 03/16/2021. Comparison: None. Clinical: Trauma. Pain. Comment: Noncontrast transaxial and sagittal/coronal reformatted images were obtained. The prevertebral soft tissues appear within normal limits. There are postsurgical changes status post anterior fusion at C4-5-6-7. There is complete fusion at C4-5 and C5-6. There is incomplete fusion at C6-7. There is anterolisthesis at C7-T1 without evidence of locked and/or perch facets. Interspace narrowing, spondylosis, disc osteophyte complexes and relative central canal stenosis are noted primarily at C3-4, C6-7 and C7-T1. T here is asymmetrical multilevel foraminal narrowing. All CT scans at this facility are performed using dose optimization techniques including the following: Automated exposure control. Impression: No evidence to suggest acute osseous or prevertebral soft tissue abnormalities. at 1999 Reported and signed by: Rohan Iglesias MD CC: Pawel Valles MD Technologist: Terrance Paul CTDI: 6.2 DLP: 1193.6 Trscr Dt/Tm: 03/16/2021 (1999) by:[email or web address] Print D/T: S: 03/16/2021 (2002) BATCH NO: N/A Name: CHARLA MCCOLLUM Phys: Pawel Toro MD [address] [facility] : 1950 Age: 71 Sex: F [place] Loc: T.ERMT 12 Exam Date: 03/16/2021 Status: ADM IN PH: FAX: PAGE 1 Signed [id number] 19:56:00 Test Item Value Reference Range Interpretation Comments TROPONIN-I (test 8.0 ng/L 0.0-34.0 N CAUTION: UN ITS OF THE CURRENT code = TROPI) TEST METHODOLO GY (ng/L) DIFFERFROM THE PRIOR TEST METHODOLOGY (ng /mL) BY A FACTOR OF 1000. RESULTS FROM DIFFERENT METHO DS SHOULD NOT BE COMPARED TO ONEANOTHER QUANTITATIVE RE SULTS AND URLS MAY VARY BY METHOD. IN ORDE R TO DISTINGUISH ACU TE ELEVATIONS OF HIGH SENSITI VETROPONIN FROM OTHER CLIN ICAL CONDITIONS, THE UNIVERSALDEFINI TION OF MYOCARDIAL INFA RCTION STRESSES CLINIC ALASSESSMENT AND THE NEED FO R SERIAL MEASUREMENTS TO OBSERVE ARISE AND/OR FALL ABO VE THE UPPER LIMIT OF THE RE FERENCERANGE. CONSIDERATION F OR CARDIOLOGY EVALUATION AND DRAWINGTHIRD hs-cTn, INCLUDI NG IF CHANGE IN THE CLINICAL STATUS ORSERIAL hs-cTn s ARE INCREASING, PAR TICULARLY ABOVE THE 99THG DAVID-SPECIFIC PERCENTILE. - CT HEAD/BRAIN W/O [id number] 19:56:00 [facility] : 1950 Sex: FPatient Name: CHARLA MCCOLLUM Unit No: [id number] EXAMS: CPT: [id number] CT HEAD/BRAIN W/O CONT 60462 CT HEAD WITHOUT CONTRAST, 03/16/2021. COMPARISON:None. CLINICAL: Trauma. Headache. Comment: Noncontrast transaxial plus sagittal/coronal reformatted images were obtained. Mild atrophy is present. The lateral, third and fourth ventricles appear within normal limits. There is no midline shift, acute intraparenchymal hemorrhage, major territorial infarction or extracerebral fluid collection. The calvarium is intact. The visualized paranasal sinuses and mastoids are well pneumatized. All CT scans at this facility are performed using dose optimization techniques including the following: Automated exposure co ntrol. IMPRESSION: No evidence of acute intracranial hemorrhage. at 195 Reported and signed by: Rohan Iglesias MD CC: Pawel Valles MD Technologist: Terrance Paul CTDI: 45.2 DLP: 1193.6 Trscr Dt/Tm: 03/16/2021 (1955) by:[email or web address] Orig Print D/T: S: 03/16/2021 (1958) BATCH NO: N/A Name: CHARLA MCCOLLUM [facility] [place] Phys: Pawel Toro MD [address] [facility] : 1950 Age: 71 Sex: F [place] Loc: [facility] 12 Exam Date: 03/16/2021 Status: ADM IN PH: FAX: PAGE 1 Signed ReportBASIC METABOLIC [id number] 19:55:00 Test Item Value Reference Range Interpretation Comments SODIUM (test code 143 mmol/L 136-145 N = NA) POTASSIUM (test 3.5 mmol/L 3.4-4.5 N code = K) CHLORIDE (test 114 mmol/L 98-107 H code = CL) CARBON DIOXIDE 24 mmol/l 20-31 N (test code = CO2) GLUCOSE (test code 86 mg/dL 74-106 N = GLU) BLOOD UREA 12 mg/dL 9-23 N NITROGEN (test code = BUN) GLOMERULAR >=60 max >60 The estimated FILTRATION RATE estimate glomerular (test code = GFR) filtration rate is computed usingpatient ra ce, age (>18), sex, and serum creatinin e. If anyof the neede d data elements a re missing the Laboratory noelle ot compute an estimation of t he glomerular filtration rate . CREATININE (test 0.74 mg/dL 0.55-1.02 N code = CREAT) CALCIUM (test code 9.2 mg/dL 8.7-10.4 N = CA) - XR HIP W/PEL UNI 2+V [id number] 19:50:00 [facility] : 1950 Sex: FPatient Name: CHARLA MCCOLLUM Unit No: [id number] EXAMS: CPT: [id number] XR HIP W/PEL UNI 2+[place] [id number] Left hip, 2 views, 03/16/2021. Clinical: Pain. Comment: There is an acute comminuted left femoral intertrochanteric fracture. 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 There is no evidence of dislocation. IMPRESSION: Acute comminuted left femoral intertrochanteric fracture. at 1950 Reported and signed by: Rohan Iglesias MD CC: Pawel Valles MD Technologist: Cedric Overton Fluoro Time: DAP (Gy m2): Air Kerma (mGy): Trscr Dt/Tm: 03/16/2021 (1949) by:[email or web address] Orig Print D/T: S: 03/16/2021 (1952) BATCH NO: N/A Name: SALVADOREAN,CHARLA Chaudhary Phys: Pawel Toro MD [address] [facility] : 1950 Age: 71 Sex: F [place] [facility] Exam Date: 03/16/2021 Status: ADM IN PH: FAX: PAGE 1 Signed ReportCBC W/AUTO [id number] 19:39:00 Test Item Value Reference Range Interpretation Comments WHITE BLOOD CELL (test code = 13.84 K/mm3 5.0-12.0 H WBC) RED BLOOD CELL (test code = RBC) 4.20 M/mm3 4.20-5.40 N HEMOGLOBIN (test code = HGB) 11.7 G/DL 12.0-16.0 L HEMATOCRIT (test code = HCT) 36.8 % 34.9-44.5 N MEAN CELL VOLUME (test code = 88 fL 81-99 N MCV) MEAN CELL HGB (test code = MCH) 27.9 PGM 27-31 N MEAN CELL HGB CONCENTRATION (test 31.8 G/DL 33-37 L code = MCHC) RED CELL DISTRIBUTION WIDTH (test 15.4 % 11.6-16.2 N code = RDW) PLATELET COUNT (test code = PLT) 248 K/mm3 130-400 N MEAN PLATELET VOLUME (test code = 9.8 fl 7.4-10.4 N MPV) NEUTROPHIL % (test code = NT%) 77.7 % 43-65 H IMMATURE GRANULOCYTE % (test code 0.4 % 0.0-2.0 N = IG%) LYMPHOCYTE % (test code = LY%) 15.1 % 20.5-45.5 L MONOCYTE % (test code = MO%) 6.5 % 5.5-11.7 N EOSINOPHIL % (test code = EO%) 0.1 % 0.9-2.9 L BASOPHIL % (test code = BA%) 0.2 % 0.2-1.0 N NUCLEATED RBC % (test code = 0.0 % 0-1.0 N NRBC%) NEUTROPHIL # (test code = NT#) 10.74 K/mm3 2.2-4.8 H LYMPHOCYTE # (test code = LY#) 2.09 K/mm3 1.3-2.9 N MONOCYTE # (test code = MO#) 0.90 K/mm3 0.3-0.8 H EOSINOPHIL # (test code = EO#) 0.02 K/MM3 0.0-0.2 N BASOPHIL # (test code = BA#) 0.03 K/mm3 0.0-0.1 N BASIC METABOLIC [id number] 06:50:00 Test Item Value Reference Range Interpretation [...] S NOT APPLICABLE FOR DIALYSIS PATIEN TS. Electric Cutter Operator ID - EDASICBC W/PLT COUNT & AUTO [id number] 06:21:00 Test Item Value Reference Range Interpretation [...] 0-1 PERCENT (BEAKER) (test code = 2801) CREATINE KINASE (CK)2019-12-05 13:49:00 Test Item Value Reference Range Interpretation Comments CREATINE KINASE TOTAL (BEAKER) (test 1165 U/L 29-200 H code = 380) Electric Cutter Operator ID - CANDY LBASIC METABOLIC [id number] 07:49:00 Test Item Value Reference Range Interpretation [...] S NOT APPLICABLE FOR DIALYSIS PATIEN TS. Electric Cutter Operator ID - PASCUAL MCBC W/PLT COUNT & AUTO [id number] 07:13:00 Test Item Value Reference Range Interpretation [...] 0-1 PERCENT (BEAKER) (test code = 2801) SARS-COV2/RT-PCR ([facility])2019-12-04 10:00:00 Test Item Value Reference Range Interpretation Comments SARS-COV2/RT-PCR (test Negative Not Detected, Negative, code = 4171950) See external report for linked test SARS-COV-[address] [facility] (test code = 3831551) Negative result for this test determines that [...] individuals suspected of COVID-19 by their healthcare provider.This test [...] justifying the authorization of the emergency use ofin vitro diagnostic tests for detection and/or diagnosis of COVID-19 is terminated under Section 564(b)(2) of the Act or the EUA is revoked under Section 564(g) of the Act.Fact Sheet for Healthcare Prov iders:https://www.[employer]/sites/default/files/product/documents/Fact_Sheet_HC _Itomyiavu_Yqrd_FXWA-LnW-8.pdfFact Sheet for Healthcare Patients:https://www.[employer]/sites/default/files/product/docume nts/Yuwd_Qdqrp_Puzrwdsw_Qkox_HIVX-TcV-6.pdfPerforming Laboratory:[place] [address] [place], [place] [address]YOWLTYPGFD W/ MICROSCOPIC 2019-12-04 06:03:00 Test Item Value Reference Range Interpretation [...] = 516) SOURCE(BEAKER) (test code = 2795) Electric Cutter Operator ID - [auto]Electric Cutter Operator ID - techCREATINE KINASE (CK)2019-12-04 05:38:00 Test Item Value Reference Range Interpretation Comments CREATINE KINASE TOTAL (BEAKER) (test 2301 U/L 29-200 H code = 380) Electric Cutter Operator ID - CANDY [id number] 02:43:00 Test Item Value Reference Range Interpretation Comments PHOSPHORUS (BEAKER) (test code = 3.2 mg/dL 2.3-4.7 604) Electric Cutter Operator ID - PILOKI [id number] 02:43:00 Test Item Value Reference Range Interpretation Comments MAGNESIUM (BEAKER) (test code = 1.9 mg/dL 1.6-2.6 627) Electric Cutter Operator ID - CANDY LBASIC METABOLIC [id number] 02:43:00 Test Item Value Reference Range Interpretation [...] S NOT APPLICABLE FOR DIALYSIS PATIEN TS. Electric Cutter Operator ID - PIAYA LHEPATIC FUNCTION [id number] 02:43:00 Test Item Value Reference Range Interpretation [...] (test code = 18 U/L 6-55 347) Electric Cutter Operator ID - PIAYA LCBC W/PLT COUNT & AUTO [id number] 02:16:00 Test Item Value Reference Range Interpretation [...] % 0-1 PERCENT (BEAKER) (test code = 7691)
[2022-04-06 11:10] LABS: Hematocrit 36.9 % (36.0-45.0); Lymphocytes % 18.2 % (15.3-44.8); MCV 82.8 fL (80-100); RBC Red Blood Cell Count 4.46 M/uL (3.86-4.86)
[2022-04-06 11:23] LABS: Albumin 3.7 g/dL (3.4-5.0); Bilirubin Total 0.3 mg/dL (0.2-1.0); Protein, Total 7.8 g/dL (6.4-8.2)
[2022-04-06 11:24] LABS: Potassium 2.9 mmol/L (3.5-5.1)
[2022-04-06] MEDS ORDERED: POTASSIUM 25 MEQ EFFERV TAB ONE (11:29)
[2022-04-06] MEDS ORDERED: LORazepam 2 MG/ML VIAL ONE (11:59)
--- NOTE | 2022-04-06 12:00 | RAD REPORT ---
EXAM DESCRIPTION: CT - Abdomen Pelvis W Contrast - 04/06/2022 11:32 am CLINICAL HISTORY: Abdominal pain COMPARISON: 2013 TECHNIQUE: Computed axial tomography of the abdomen pelvis was obtained. 100 cc Isovue-300 was admin istered intravenously. Oral contrast was not requested which limits evaluation of bowel and appendix All CT scans are performed using dose optimization technique as appropriate and may include automated exposure control or mA/KV adjustment according to patient size. FINDINGS: The liver, spleen, pancreas, adrenal and kidneys appear unremarkable. There is no evidence of diverticulitis. A moderate hiatal hernia. Thickening of the wall of the distal esophagus. Cholelithiasis. Gallbladder wall not thickened Postsurgical changes left hip. Hysterectomy IMPRESSION: Thickening of the wall of the distal esophagus. This may indicate inflammation or mass. Cholelithiasis without evidence cholecystitis
--- NOTE | 2022-04-06 13:29 | EDPHYS ---
Physician Documentation [facility] Name: Rozina Palencia Age: 72 yrs Sex: Female : 1950 Arrival Date: 04/06/2022 Time: 10:13 Bed 6 Private MD: Mary Alice Bustillos ED Physician Geraldo Gomez HPI: 04/06 13:30 This 72 yrs old Female presents to ER via Wheelchair with complaints of Abdominal ms3 Distention, Anxiety, Black/Tarry Stools, Vomiting. 13:30 72-year-old female with past medical history of depression, hypertension presents for ms3 abdominal pain and black stool for 4 days. Patient states she is having 2 stools per day. Patient endorses taking Pepto-Bismol. Patient states her pain was moderate and diffuse. Patient denies inciting factors. Patient states pain has improved since taking Pepto-Bismol. Patient states her pain has resolved at this time.. Historical: - Allergies: 10:16 PENICILLINS; iw 10:16 Toradol; iw - PMHx: 10:16 Depression; Hypertension; iw - Immunization history:: Client reports receiving the 2nd dose of the Covid vaccine. - Social history:: Smoking status: unknown. ROS: 13:30 Constitutional: Negative for fever, and chills. Neck: Negative for injury, pain, and ms3 swelling, Cardiovascular: Negative for chest pain, and palpitations. Respiratory: Negative for shortness of breath, cough, wheezing, and pleuritic chest pain. 13:30 Abdomen/GI: Positive for abdominal pain. 13:30 All other systems are negative. Exam: 13:30 Constitutional: This is a well developed, well nourished patient who is awake, alert, ms3 and in no acute distress. Head/Face: Normocephalic, atraumatic. Neck: Trachea midline, no cervical lymphadenopathy. Supple, full range of motion without nuchal rigidity, or vertebral point tenderness. No Meningismus. Chest/axilla: Normal chest wall appearance and motion. Nontender with no deformity. Cardiovascular: Regular rate and rhythm with a normal S1 and S2. No gallops, murmurs, or rubs. Normal PMI, no JVD. No pulse deficits. Respiratory: Lungs have equal breath sounds bilaterally, clear to auscultation and percussion. No rales, rhonchi or wheezes noted. No increased work of breathing, no retractions or nasal flaring. 13:30 Skin: Warm, dry with normal turgor. Normal color with no rashes, no lesions, and no evidence of cellulitis. MS/ Extremity: Pulses equal, no cyanosis. Neurovascular intact. Full, normal range of motion. 13:30 Abdomen/GI: Inspection: abdomen appears normal, Bowel sounds: normal, Palpation: mild abdominal tenderness, in all quadrants, Rectal exam: is unremarkable, rectal tone normal, Stool: brown. Vital Signs: 10:17 BP 140 / 48; Pulse 98; Resp 16; Temp 99.0(O); Pulse Ox 99% on R/A; Weight 54.43 kg; iw Height 5 ft. 0 in. (152.40 cm); 12:46 BP 139 / 61; Pulse 87; Pulse Ox 98% on R/A; ap3 13:34 BP 128 / 61; Pulse 88; Resp 19; Pulse Ox 100% ; ll1 10:17 Body Mass Index 23.44 (54.43 kg, 152.40 cm) iw MDM: 10:31 Patient medically screened. ms3 13:30 Differential diagnosis: Nonspecific abd pain, gastritis, viral gastroenteritis, ms3 gastroenteritis. Data reviewed: vital signs, nurses notes, lab test result(s), CBC, electrolytes, hepatic panel, radiologic studies, CT scan, and as a result, I will discharge patient. Consideration of Admission/Observation Escalation of care including admission/observation considered. No emergent condition necessitating hospitalization identified at this time.. I considered the following discharge prescriptions or medication management in the emergency department I discussed and recommended Over The Counter medications, Antibiotics: At this time antibiotics are not recommended, Medications were administered in the Emergency Department. See MAR. Care significantly affected by the following chronic conditions: Hypertension. Counseling: I had a detailed discussion with the patient and/or guardian regarding: the historical points, exam findings, and any diagnostic results supporting the discharge/admit diagnosis, lab results, radiology results, the need for outpatient follow up, to return to the emergency department if symptoms worsen or persist or if there are any questions or concerns that arise at home. ED course: Discussed distal esophageal found on CT with patient. Patient to follow-up with her primary care physician for further testing. Patient understands and agrees with plan. All questions were answered. Return precautions discussed include worsening symptoms, or any other concerns. On reevaluation patient is tolerating p.o., alert and orient x4, in no apparent distress, nontoxic-appearing.. 04/06 10:50 Order name: CBC with Diff; Complete Time: 11:56 ms3 04/06 10:50 Order name: CMP; Complete Time: 11:56 ms3 04/06 10:50 Order name: Lipase; Complete Time: 11:56 ms3 04/06 10:50 Order name: CT Abd/Pelvis - IV Contrast Only ms3 04/06 10:54 Order name: Abdomen ; Complete Time: 12:59 EDMS 04/06 10:50 Order name: IV Saline Lock; Complete Time: 10:57 ms3 04/06 10:50 Order name: Labs collected and sent; Complete Time: 10:57 ms3 Administered Medications: 11:38 Drug: Potassium Effervescent Tablet 50 mEq Route: PO; ss 13:36 Follow up: Response: No adverse reaction ll1 12:01 Drug: Ativan (LORazepam) 0.5 mg Route: IVP; Site: left antecubital; ll1 13:37 Follow up: Response: No adverse reaction; Anxiety decreased; RASS: Alert and Calm (0) ll1 Disposition Summary: 04/06/22 13:28 Discharge Ordered Location: Home ms3 Condition: Stable ms3 Diagnosis - Abdominal pain, Generalized ms3 - Hypokalemia ms3 - Anxiety disorder, unspecified ms3 - Thickened distal esophagus ms3 - Essential (primary) hypertension ms3 Followup: ms3 - With: Mary Alice Bustillos MD - When: 2 - 3 days - Reason: Recheck today's complaints Followup: ms3 - With: Umair Michel DO - When: 2 - 3 days - Reason: Recheck today's complaints Discharge Instructions: - Discharge Summary Sheet ms3 - Abdominal Pain, Adult ms3 - Potassium Content of Foods ms3 - Managing Anxiety, Adult ms3 Forms: - Medication Reconciliation Form ms3 - Thank You Letter ms3 - Antibiotic Education ms3 - Prescription Opioid Use ms3 Prescriptions: - Pepcid 20 mg Oral Tablet - take 1 tablet by ORAL route 2 times per day; 30 tablet; Refills: 0, Product ms3 Selection Permitted Signatures: Dispatcher [employer] Rosalinda Cottrell RN RN iw Jennifer Calzada, RN RN ss Hailee Hill, RN RN ap3 Wes Khalil, RN RN ll1 Geraldo Gomez, DO JESSICA ms3
--- NOTE | 2022-04-06 13:29 | ER ---
Nurse's Notes [facility] Name: Rozina Palencia Age: 72 yrs Sex: Female : 1950 Arrival Date: 04/06/2022 Time: 10:13 Bed 6 Private MD: Mary Alice Bustillos Diagnosis: Abdominal pain, Generalized;Hypokalemia;Anxiety disorder, unspecified;Thickened distal esophagus;Essential (primary) hypertension Presentation: 04/06 10:16 Chief complaint: Patient states: was sent by Dr. Miner for black tarry stool and abd iw pain X 4 days , also is having a lot of anxiety. Coronavirus screen: At this time, the client does not indicate any symptoms associated with coronavirus-19. Ebola Screen: Patient negative for fever greater than or equal to 101.5 degrees Fahrenheit, and additional compatible Ebola Virus Disease symptoms Patient denies exposure to infectious person. Patient denies travel to an Ebola-affected area in the 21 days before illness onset. No symptoms or risks identified at this time. Initial Sepsis Screen: Does the patient meet any 2 criteria? No. Patient's initial sepsis screen is negative. Does the patient have a suspected source of infection? No. Patient's initial sepsis screen is negative. Risk Assessment: Do you want to hurt yourself or someone else? Patient reports no desire to harm self or others. Onset of symptoms was April 02, 2022. 10:16 Method Of Arrival: Wheelchair iw 10:16 Acuity: RICARDO 3 iw Triage Assessment: 10:20 General: Appears uncomfortable, Behavior is anxious. Pain: Complains of pain in ap3 epigastric area Pain began gradually, 2-3 days ago. Neuro: Level of Consciousness is awake, alert, obeys commands, Oriented to person, place, time, situation. Cardiovascular: Patient's skin is warm and dry. Respiratory: Airway is patent Respiratory effort is even, unlabored, Respiratory pattern is regular, symmetrical. GI: Reports upper abdominal pain. Historical: - Allergies: 10:16 PENICILLINS; iw 10:16 Toradol; iw - PMHx: 10:16 Depression; Hypertension; iw - Immunization history:: Client reports receiving the 2nd dose of the Covid vaccine. - Social history:: Smoking status: unknown. Screenin:44 Abuse screen: Denies threats or abuse. Nutritional screening: No deficits noted. ap3 Tuberculosis screening: No symptoms or risk factors identified. 12:46 [facility] ED Fall Risk Assessment (Adult) History of falling in the last 3 months, ap3 including since admission No falls in past 3 months (0 pts) Confusion or Disorientation No (0 pts) Intoxicated or Sedated No (0 pts) Impaired Gait Yes (1 pt) Mobility Assist Device Used No (0 pt) Altered Elimination No (0 pt) Score/Fall Risk Level 0 - 2 = Low Risk. Assessment: 10:30 GI: Bowel sounds present X 4 quads. Abd is soft X 4 quads Abdomen is tender to ap3 palpation in epigastric area. 11:30 Reassessment: No changes from previously documented assessment. Patient and/or family ll1 updated on plan of care and expected duration. Pain level reassessed. Patient is alert, oriented x 3, equal unlabored respirations, skin warm/dry/pink. 12:00 Reassessment: No changes from previously documented assessment. Patient and/or family ll1 updated on plan of care and expected duration. Pain level reassessed. Patient is alert, oriented x 3, equal unlabored respirations, skin warm/dry/pink. 12:45 Reassessment: No changes from previously documented assessment. Patient and/or family ll1 updated on plan of care and expected duration. Pain level reassessed. Patient is alert, oriented x 3, equal unlabored respirations, skin warm/dry/pink. 13:35 Reassessment: No changes from previously documented assessment. Patient and/or family ll1 updated on plan of care and expected duration. Pain level reassessed. Patient is alert, oriented x 3, equal unlabored respirations, skin warm/dry/pink. eating sandwich, pudding. Ride on the way to pick her up. 13:51 Reassessment: No changes from previously documented assessment. Patient and/or family ll1 updated on plan of care and expected duration. Pain level reassessed. Patient is alert, oriented x 3, equal unlabored respirations, skin warm/dry/pink. Vital Signs: 10:17 BP 140 / 48; Pulse 98; Resp 16; Temp 99.0(O); Pulse Ox 99% on R/A; Weight 54.43 kg; iw Height 5 ft. 0 in. (152.40 cm); 12:46 BP 139 / 61; Pulse 87; Pulse Ox 98% on R/A; ap3 13:34 BP 128 / 61; Pulse 88; Resp 19; Pulse Ox 100% ; ll1 10:17 Body Mass Index 23.44 (54.43 kg, 152.40 cm) ED Course: 10:13 Patient arrived in ED. am2 10:14 Mary Alice Bustillos MD is Private Physician. am2 10:14 Geraldo Gomez DO is Attending Physician. ms3 10:16 Triage completed. iw 10:30 Hailee Hill, RN is Primary Nurse. ap3 10:31 Inserted saline lock: 20 gauge in right antecubital area, using aseptic technique. ap3 Blood collected. 11:34 Abdomen In Process Unspecified. EDMS 12:44 Patient has correct armband on for positive identification. Bed in low position. Call ap3 light in reach. Side rails up X 1. Pulse ox on. NIBP on. Door closed. Noise minimized. Warm blanket given. 12:45 Arm band placed on right wrist. ap3 13:27 Mary Alice Bustillos MD is Referral Physician. ms3 13:27 Referral Physician role handed off by Mary Alice Bustillos MD ms3 13:27 Umair Michel DO is Referral Physician. ms3 13:50 No provider procedures requiring assistance completed. IV discontinued, intact, ll1 bleeding controlled, No redness/swelling at site. Pressure dressing applied. Administered Medications: 11:38 Drug: Potassium Effervescent Tablet 50 mEq Route: PO; ss 13:36 Follow up: Response: No adverse reaction ll1 12:01 Drug: Ativan (LORazepam) 0.5 mg Route: IVP; Site: left antecubital; ll1 13:37 Follow up: Response: No adverse reaction; Anxiety decreased; RASS: Alert and Calm (0) ll1 Medication: 12:45 VIS not applicable for this client. ap3 Outcome: 13:28 Discharge ordered by . ms3 13:51 Discharged to home ambulatory. ll1 13:51 Condition: stable 13:51 Discharge instructions given to patient, Instructed on discharge instructions, follow up and referral plans. medication usage, Demonstrated understanding of instructions, follow-up care, medications, Prescriptions given X 1. 13:51 Patient left the ED. ll1 Signatures: Dispatcher [employer] Rosalinda Cottrell RN RN Jennifer Marquez RN RN Hailee Payne Amanda, RN RN ap3 Wes Khalil RN RN ll1 Geraldo Gomez, DO JESSICA ms3 Corrections: (The following items were deleted from the chart) 13:37 13:35 Reassessment: No changes from previously documented assessment. Patient and/or ll1 family updated on plan of care and expected duration. Pain level reassessed. Patient is alert, oriented x 3, equal unlabored respirations, skin warm/dry/pink. ll1
[2022-04-06 14:38] VITALS: TEMP 99
[2022-04-06 14:40] VITALS: BP 128/61; O2SAT 100
== END 2022-04-06 13:51 | disposition home or self-care (01) ==
LOC: ER 10:12
DX: R10.84 Generalized abdominal pain (principal); E87.6 Hypokalemia; F41.9 Anxiety disorder, unspecified; I10 Essential (primary) hypertension; K22.89 Other specified disease of esophagus; Z88.0 Allergy status to penicillin; Z88.5 Allergy status to narcotic agent
CPT/HCPCS: 85025; 36415; 83690; 80053; 74177; 96374; 99284; Q9967